=== PATIENT | female | born 1930 | race Two or more races ===

== ENCOUNTER 2016-12-24 20:15 | Emergency (ER) | payer OTHER ==
[2016-12-24 20:28] VITALS: BP 137/84; PULSE 105; TEMP 99.1; BMI 24.7
[2016-12-24] MEDS ORDERED: ACETAMINOPHEN 325 MG TABLET (FP) PO ONE (20:30)
[2016-12-24 20:56] LABS: URINE APPEARANCE CLEAR; URINE BILIRUBIN NEGATIVE (NEGATIVE); URINE BLOOD NEGATIVE (NEGATIVE); URINE COLOR STRAW; URINE GLUCOSE (UA) NEGATIVE (NEGATIVE); URINE KETONE NEGATIVE (NEGATIVE); URINE LEUK ESTERASE NEGATIVE (NEGATIVE); URINE NITRITE NEGATIVE (NEGATIVE); URINE PROTEIN NEGATIVE (NEGATIVE); URINE UROBILINOGEN NEGATIVE E.U./dl (0.2-1.0)
--- NOTE | 2016-12-24 21:07 | PDOC ---
History of Present Illness - General History Source: Patient, Family, Old Records Exam Limitations: No Limitations - History of Present Illness Initial Comments: 12/24/16 21:19 The patient is a 86 year old female, accompanied by daughter, with a past medical history of hypertension and hyperlipidemia who presents to the emergency department today for further evaluation of cough, runny nose, and subjective fever for 2 days. The patient denies nausea, vomiting, and diarrhea. PCP: Dr. Betty Buckner [phone] PAST MEDICAL HISTORY: As per HPI PAST SURGICAL HISTORY: No significant history reported FAMILY HISTORY: No pertinent history reported SOCIAL HISTORY: None reported MEDICATIONS: Reviewed ALLERGIES: As per nursing notes <Mk Huddleston - Last Filed: 12/24/16 22:13> - General History Source: Patient, Family <Eduardo Moraes - Last Filed: 12/24/16 23:11> - General Chief Complaint: Cold Symptoms Stated Complaint: COLD SYMPTOMS Time Seen by Provider: 12/24/16 20:25 Past History <Mk Huddleston - Last Filed: 12/24/16 22:13> - Past Medical History HTN: Yes Hypercholesterolemia: Yes Suicide Attempt (Hx): No - Immunization History Immunization Up to Date: Yes - Psycho/Social/Smoking Cessation Hx Anxiety: No Suicidal Ideation: No Smoking History: Never smoked Hx Alcohol Use: No Drug/Substance Use Hx: No Substance Use Type: None <Eduardo Moraes - Last Filed: 12/24/16 23:11> - Past Medical History Allergies/Adverse Reactions: Allergies Allergy/AdvReac Type Severity Reaction Status Date / Time No Known Allergies Allergy Verified 12/24/16 20:26 Home Medications: Ambulatory Orders Benazepril HCl 20 mg PO DAILY 08/16/14 Multivitamins [Multivit ([facility] Formulary)] 1 tab PO DAILY 08/16/14 Simvastatin [Zocor -] 40 mg PO HS 08/16/14 Levofloxacin [Levaquin -] 500 mg PO DAILY #7 tablet 12/29/15 Oseltamivir Phosphate [Tamiflu] 75 mg PO BID #10 capsule 12/29/15 Azithromycin [Zithromax -] 250 mg PO UTDICT #6 tab 12/24/16 Guaifenesin AC [Robitussin AC -] 5 ml PO TID #60 liquid MDD 4 12/24/16 Review of Systems - Review of Systems Able to Perform ROS?: Yes Comments:: 12/24/16 21:20 CONSTITUTIONAL: Present: fever Absent: no chills, no fatigue EYES: Absent: visual changes ENT: Present: Runny nose Absent: ear pain, no sore throat CARDIOVASCULAR: Absent: chest pain, palpitations RESPIRATORY: Present: Cough Absent: no SOB GI: Absent: abdominal pain, no nausea, no vomiting, no constipation, no diarrhea GENITOURINARY: Absent: dysuria, no frequency, no hematuria MUSCULOSKELETAL: Absent: back pain, no arthralgia, no myalgia SKIN: Absent: rash <Mk Huddleston - Last Filed: 12/24/16 22:13> *Physical Exam - Vital Signs Last Vital Signs Temp Pulse Resp BP Pulse Ox 99.1 F 105 H 18 137/84 98 12/24/16 20:26 12/24/16 20:26 12/24/16 20:26 12/24/16 20:26 12/24/16 20:26 - Physical Exam Comments: 12/24/16 21:20 GENERAL: Well-appearing, well-nourished. No apparent distress. HEENT: Normocephalic, atraumatic. PERRL, EOM intact. CARDIOVASCULAR: Normal S1, S2. Regular rate and rhythm. PULMONARY: Clear to auscultation bilaterally. ABDOMEN: Soft, non-distended, non-tender. EXTREMITIES: Normal ROM in all four extremities. No gross deformities. SKIN: Warm, dry. No rash NEUROLOGICAL: No focal neurological deficits. <Mk Huddleston - Last Filed: 12/24/16 22:13> - Vital Signs Last Vital Signs Temp Pulse Resp BP Pulse Ox 99.1 F 105 H 18 137/84 98 12/24/16 20:26 12/24/16 20:26 12/24/16 20:26 12/24/16 20:26 12/24/16 20:26 <Eduardo Moraes - Last Filed: 12/24/16 23:11> ED Treatment Course - LABORATORY CBC & Chemistry Diagram: 12/24/16 21:05 12/24/16 21:05 - ADDITIONAL ORDERS Additional order review: Laboratory Results 12/24/16 20:40 Urine Color Straw Urine Appearance Clear Urine pH 6.0 Ur Specific [place] 1.008 Urine Protein Negative Urine Glucose (UA) Negative Urine Ketones Negative Urine Blood Negative Urine Nitrite Negative Urine Bilirubin Negative Urine Urobilinogen Negative Ur Leukocyte Esterase Negative - RADIOLOGY Radiology Studies Ordered: 12/24/16 22:13 CXR: Impression: Normal chest x-ray <Mk Huddleston - Last Filed: 12/24/16 22:13> - LABORATORY CBC & Chemistry Diagram: 12/24/16 21:05 12/24/16 21:05 - ADDITIONAL ORDERS Additional order review: Laboratory Results 12/24/16 20:40 Urine Color Straw Urine Appearance Clear Urine pH 6.0 Ur Specific [place] 1.008 Urine Protein Negative Urine Glucose (UA) Negative Urine Ketones Negative Urine Blood Negative Urine Nitrite Negative Urine Bilirubin Negative Urine Urobilinogen Negative Ur Leukocyte Esterase Negative <Eduardo Moraes - Last Filed: 12/24/16 23:11> Medical Decision Making - Medical Decision Making 12/24/16 23:10 Dr. Moraes: The scribe's documentation has been prepared under my direction and personally reviewed by me in its entirery. I confirm that the note above accurately reflects all work, treatment, procedures, and medical decision making performed by me. All studies return to be negative. Patient will discharged with a Mandie and Berny. Advised to follow up with pcp. <Eduardo Moraes - Last Filed: 12/24/16 23:11> *DC/Admit/Observation/Transfer - Attestations Scribe Attestion: 12/24/16 21:21 Documentation prepared by Mk Huddleston, acting as medical equipment technician for Eduardo Moraes MD. <Mk Huddleston - Last Filed: 12/24/16 22:13> - Discharge Dispostion Admit: No <Eduardo Moraes - Last Filed: 12/24/16 23:11> Diagnosis at time of Disposition: Cough - Discharge Dispostion Disposition: HOME Condition at time of disposition: Stable - Prescriptions Prescriptions: Guaifenesin AC [Robitussin AC -] 5 ml PO TID #60 liquid MDD 4 Azithromycin [Zithromax -] 250 mg PO UTDICT #6 tab - Referrals Referrals: Betty Buckner MD [Primary Care Provider] - - Patient Instructions Printed Discharge Instructions: DI for Cough -- Adult
[2016-12-24] MEDS ORDERED: ACETAMINOPHEN 325 MG TABLET (FP) ONE (21:10)
[2016-12-24 21:37] LABS: EOSINOPHIL 0.3 % (0-4.5); MCH 30.7 pg (25.7-33.7); MEAN CELL VOLUME 92.9 fl (80-96); NEUTROPHILS 70.1 % (42.8-82.8); PLATELET COUNT 244 K/MM3 (134-434); RDW 14.4 % (11.6-15.6); WHITE BLOOD COUNT 6.3 K/mm3 (4.0-10.0)
[2016-12-24 21:54] LABS: INR 1.04 (0.82-1.09); PROTHROMBIN TIME (PATIENT) 11.5 SEC (9.98-11.88)
[2016-12-24 22:50] LABS: ALBUMIN 3.9 g/dl (3.4-5.0); ANION GAP 6 (8-16); BILIRUBIN,TOTAL 0.4 mg/dL (0.2-1.0); CALCIUM 9.2 mg/dL (8.5-10.1); CO2 29 mmol/L (21-32); CREATININE 0.6 mg/dL (0.55-1.02); GLUCOSE,RANDOM 100 mg/dL (74-106); SGOT/AST 14 U/L (15-37); SGPT/ALT 17 U/L (12-78); TOT PROT 7.9 g/dl (6.4-8.2)
[2016-12-24 22:54] LABS: ALK PHOS 109 U/L (45-117); TROPONIN I < 0.02 ng/ml (0.00-0.05)
[2016-12-24 23:09] LABS: VENOUS BLOOD GAS HCO3 23.9 meq/L (19-25); VENOUS PH 7.37 (7.32-7.42)
[2016-12-24] MEDS ORDERED: guaiFENesin/CODEINE 10 ML UNIT-DOSE CUPS PO ONE (23:09)
[2016-12-24] MEDS ORDERED: AZITHROMYCIN 250 MG TABLET (FP) PO STA (23:09)
[2016-12-24] MEDS ORDERED: guaiFENesin/CODEINE 5 ML UNIT-DOSE CUPS PO ONE (23:46)
[2016-12-24] MEDS ORDERED: AZITHROMYCIN 250 MG TABLET (FP) ONE (23:49)
--- NOTE | 2016-12-25 13:58 | EKG ---
Test Reason : Blood Pressure : / mmHG Vent. Rate : 101 BPM Atrial Rate : 101 BPM P-R Int : 120 ms QRS Dur : 072 ms QT Int : 342 ms P-R-T Axes : 075 032 044 degrees QTc Int : 443 ms SINUS TACHYCARDIA WITH PREMATURE VENTRICULAR COMPLEXES OR FUSION COMPLEXES NONSPECIFIC ST ABNORMALITY ABNORMAL ECG WHEN COMPARED WITH ECG OF 29-DEC-2015 10:52, FUSION COMPLEXES ARE NOW PRESENT PREMATURE VENTRICULAR COMPLEXES ARE NOW PRESENT NONSPECIFIC T WAVE ABNORMALITY NO LONGER EVIDENT IN ANTERIOR LEADS Confirmed by JOE MONDRAGON MD ([id number]) on 12/25/2016 1:57:57 PM Referred By: Confirmed By:JOE MONDRAGON MD
== END 2016-12-24 23:54 | disposition home or self-care (01) ==
LOC: JER 20:15
DX: R05 Cough (principal); I10 Essential (primary) hypertension; E78.00 Pure hypercholesterolemia, unspecified; E78.5 Hyperlipidemia, unspecified
CPT/HCPCS: 36415; 71010-TC; 80053; 81003; 82550; 82803; 83605; 84484; 85025; 85610; 87040; 87086; 87804; 93005; 93010; 99282-25

== ENCOUNTER 2016-12-29 06:57 | Observation (INO) | payer OTHER ==
--- NOTE | 2016-12-29 07:12 | PDOC ---
History of Present Illness - General History Source: Patient Exam Limitations: Language Barrier (russian) - History of Present Illness Initial Comments: 12/29/16 07:05 CHIEF COMPLAINT: Worsening runny nose, cough, shortness of breath, fever PCP: Dr. Obrien/ Dr.Dr. Galarza ([phone]) HISTORY OF PRESENT ILLNESS: 86 year old female presented to the ED accompanied by her daughter with the chief complaints of worsening cough, runny nose and shortness of breath and fever. A/c to the daughter, patient came to the ED on 12/24/2016 with the similar complaints, Chest xray was done which was negative for pneumonia and Influenza test negative for flu. Patient was sent home with Robitussin and Z-renetta but the symptoms have worsened. Patient had Fever (Tmax-101.3F) with chills but no rigors or sweating. Also reports to have cough, producing yellow-whitish sputum. Daughter mentions she has shortness of breath even at rest and could hear wheezing and " breathing like bubbles popping up". Patient mentions she had chest pain earlier due to vigorous coughing but now resolved after she received oxygen. Denies headache, dizziness, abdominal pain, nausea or vomiting. Bowel/Bladder habit normal. Sleep/Appetite disturbed/decreased. Received Flu vaccine this season and got pneumovaccine. Recent Travel: None PAST MEDICAL HISTORY: Hypertension, Hyperlipidemia PAST SURGICAL HISTORY: As mentioned above Social History: Smoking: Denies Alcohol: Occasional Drugs: Denies Family History: Allergies: NKDA <Beatriz Salgado - Last Filed: 12/29/16 10:39> <Rosina Razo - Last Filed: 12/30/16 17:20> - General Stated Complaint: RESPIRATORY Time Seen by Provider: 12/29/16 07:12 Past History - Past Medical History HTN: Yes Hypercholesterolemia: Yes Suicide Attempt (Hx): No - Immunization History Immunization Up to Date: Yes - Psycho/Social/Smoking Cessation Hx Anxiety: No Suicidal Ideation: No Smoking History: Never smoked Hx Alcohol Use: No Drug/Substance Use Hx: No Substance Use Type: None <Beatriz Salgado - Last Filed: 12/29/16 10:39> <Rosina Razo - Last Filed: 12/30/16 17:20> - Past Medical History Allergies/Adverse Reactions: Allergies Allergy/AdvReac Type Severity Reaction Status Date / Time No Known Allergies Allergy Verified 12/29/16 07:34 Home Medications: Ambulatory Orders Benazepril HCl 20 mg PO DAILY 08/16/14 Multivitamins [Multivit ([facility] Formulary)] 1 tab PO DAILY 08/16/14 Simvastatin [Zocor -] 40 mg PO HS 08/16/14 Oseltamivir Phosphate [Tamiflu -] 75 mg PO BID #6 capsule 12/30/16 Review of Systems - Review of Systems Able to Perform ROS?: Yes Comments:: 12/29/16 08:00 CONSTITUTIONAL: Present: Fever, chills Absent: diaphoresis, generalized weakness, malaise, loss of appetite HEENT:~ Absent: rhinorrhea, nasal congestion, throat pain, throat swelling, difficulty swallowing, mouth swelling, ear pain, eye pain, visual Changes CARDIOVASCULAR:~ Absent: chest pain, syncope, palpitations, irregular heart rate, lightheadedness , peripheral edema RESPIRATORY: Present: Cough, shortness of breath, dyspnea with exertion, wheezing Absent: cough, orthopnea, stridor, hemoptysis GASTROINTESTINAL: Absent: abdominal pain, abdominal distension, nausea, vomiting, diarrhea, constipation, melena, hematochezia GENITOURINARY:~ Absent: dysuria, frequency, urgency, hesitancy, hematuria, flank pain, genital pain MUSCULOSKELETAL:~ Absent: myalgia, arthralgia, joint swelling SKIN:~ Absent: rash, itching, pallor HEMATOLOGIC/IMMUNOLOGIC:~ Absent: easy bleeding, easy bruising, lymphadenopathy, frequent infections ENDOCRINE: Absent: unexplained weight gain, unexplained weight loss, heat intolerance, cold intolerance NEUROLOGIC:~ Absent: headache, focal weakness or paresthesias, dizziness, unsteady gait, seizure, mental status changes, bladder or bowel incontinence PSYCHIATRIC:~ Absent: anxiety, depression, suicidal or homicidal ideation, hallucinations. Is the patient limited [place] proficient: No <Beatriz Salgado - Last Filed: 12/29/16 10:39> *Physical Exam - Physical Exam Comments: 12/29/16 08:02 PE: GENERAL: Patient is an elderly female, lying comfortably in bed, Awake, alert, and fully oriented, in no acute distress, nasal oxygen in place. HEAD: No signs of trauma EYES: PERRLA, EOMI, sclera anicteric, conjunctiva clear ENT: Auricles normal inspection, hearing grossly normal, nares patent, oropharynx clear without exudates. Moist mucosa NECK: Normal ROM, supple, no lymphadenopathy, JVD, or masses LUNGS: Breath sounds decreased on the right lung, crackles at the right base, no wheeze. HEART: Regular rate and rhythm, normal S1 and S2, no murmurs, rubs or gallops ABDOMEN: Soft, nontender, normoactive bowel sounds. No guarding, no rebound. No masses EXTREMITIES: Normal range of motion, no edema. No clubbing or cyanosis. No cords, erythema, or tenderness NEUROLOGICAL: Cranial nerves II through XII grossly intact. Normal speech, normal gait SKIN: Warm, Dry, normal turgor, no rashes or lesions noted. <Beatriz Salgado - Last Filed: 12/29/16 10:39> - Vital Signs Last Vital Signs Temp Pulse Resp BP Pulse Ox 98.2 F 79 18 135/69 100 12/30/16 10:00 12/30/16 10:00 12/30/16 10:00 12/30/16 10:00 12/30/16 08:57 <Rosina Razo - Last Filed: 12/30/16 17:20> ED Treatment Course - LABORATORY CBC & Chemistry Diagram: 12/29/16 08:11 12/29/16 08:11 <Beatriz Salgado - Last Filed: 12/29/16 10:39> - LABORATORY CBC & Chemistry Diagram: 12/29/16 08:11 12/29/16 08:11 - ADDITIONAL ORDERS Additional order review: 12/29/16 08:11 Urine Culture - Final Urine - Urine Clean Catch NO GROWTH OBTAINED 12/29/16 08:00 Blood Culture - Preliminary Blood - Peripheral Venous NO GROWTH OBTAINED AFTER 24 HOURS, INCUBATION TO CONTINUE FOR 4 DAYS. 12/29/16 08:11 Blood Culture - Preliminary Blood - Peripheral Venous NO GROWTH OBTAINED AFTER 24 HOURS, INCUBATION TO CONTINUE FOR 4 DAYS. 12/29/16 08:11 Influenza Types A,B Antigen (NORMAN) - Final Nasopharyngeal Swab - Final 12/29/16 08:11 RBC 4.12 MCV 91.7 MCHC 33.9 RDW 14.1 MPV 9.1 Neutrophils % 28.2 L D Lymphocytes % 36.3 D Monocytes % 34.1 H D Eosinophils % 0.6 D Basophils % 0.8 - Medications Given in the ED: ED Medications Discontinued Medications Generic Name Dose Route Start Last Admin Trade Name Landy PRN Reason Stop Dose Admin Albuterol/Ipratropium 1 amp 12/29/16 18:00 12/30/16 06:43 Duoneb - NEB 1 amp QIDR NAVNEET Administration Atorvastatin Calcium 20 mg 12/29/16 22:00 12/29/16 22:01 Lipitor - PO 20 mg HS NAVNEET Administration Sodium Chloride 1,000 mls @ 83 mls/hr 12/29/16 07:45 12/30/16 09:09 Normal Saline - IV 83 mls/hr ASDIR NAVNEET Administration Levofloxacin 150 mls @ 100 mls/hr 12/29/16 07:36 12/29/16 08:29 Levaquin 750 Mg Premixed Ivpb - IVPB 12/29/16 09:05 100 mls/hr ONCE ONE Administration Lisinopril 20 mg 12/30/16 10:00 12/30/16 09:09 Prinivil PO 20 mg DAILY NAVNEET Administration Multivitamins/Minerals/Vitamin C 1 tab 12/30/16 10:00 12/30/16 09:09 Tab-A-Vit - PO 1 tab DAILY NAVNEET Administration Oseltamivir Phosphate 75 mg 12/29/16 10:45 12/30/16 09:09 Tamiflu - PO 01/03/17 10:44 75 mg BID NAVNEET Administration Piperacillin Sod/Tazobactam Sod 3.375 gm 12/29/16 07:36 12/29/16 08:15 Zosyn 3.375gm Ivpb (Pre-Docked) IVPB 12/29/16 07:37 3.375 gm ONCE ONE Administration Protocol <Rosina Razo - Last Filed: 12/30/16 17:20> Medical Decision Making - Medical Decision Making 12/29/16 07:06 Patient seen and examined at bed side. Vitals noted, Hyoxic, rest unremarkable. Physical examination positive for: Crackles at the lung base on auscultation. Will order basic labs, troponins, lactic acid, EKG, CXR Gentle IV fluids Since patient was refractory to zpak will order IV Levofloxacin 750mg and IV Zosyn one dose. EKG-Qtc 435 12/29/16 7:30 Patient reassessed. Breathing improved with nasal oxygen. 12/29/16 8:50 Influenza A-Positive. 12/29/16 09:10 Patients lab noted: Leukopenia (2.7); Neutrophils 28.2; Monocytes 34.1 CXR: No signs of infiltrate. Right lower lobe atelectasis Monoscreen ordered: Report pending. 12/29/16 09:33 Clinical Impression/Plan: Upper respiratory tract infections secondary to Influenza A Worsening cough, SOB, runny nose, fever Influenza A positive, leukopenia, Right lower lobe atelectasis on CXR Gentle hydration IV Zosyn and Levofloxacin (as patient didn't improve with z-renetta) Since patient is Influenza A positive and Hypoxic, will admit the patient. Call placed to Dr. Galarza at 9:34am. Spoke with Dr. Galarza @ 9:45, he agreed to the plan to admit the patient. Illness, Investigation and Plan of care explained to the patient. She verbalized understanding. Case seen and discussed with Dr. Davies. <Beatriz Salgado - Last Filed: 12/29/16 10:39> *DC/Admit/Observation/Transfer - Discharge Dispostion Admit: Yes <Beatriz Salgado - Last Filed: 12/29/16 10:39> <Rosina Razo - Last Filed: 12/30/16 17:20> Diagnosis at time of Disposition: Upper respiratory infection, Influenza A, Cough - Discharge Dispostion Disposition: [facility]/HOME HEALTH CARE Condition at time of disposition: Improved - Prescriptions Addendum entered and electronically signed by Beatriz Salgado, FRANSISCA 12/29/16 10 :40: Progress Note - Progress Note Progress Note: Ordered Tamiflu 75mg BID.
--- NOTE | 2016-12-29 07:19 | PDOC ---
Attending Attestation - Resident Resident Name: Beatriz Salgado - ED Attending Attestation I have performed the following: I have examined & evaluated the patient, The case was reviewed & discussed with the resident, I agree w/resident's findings & plan - HPI HPI: 12/29/16 07:43 86-year-old female with a past medical history of hypertension and hyperlipidemia, but no diabetes Towards the end of November she developed a cough with yellow sputum, about the same time that other family members were ill She did have the flu shot, and is current with her Pneumovax This progressed, and she was seen here on 12/24/16, and had a negative chest x- ray She was discharged on a Z-Sundar She states that despite the Z-Sundar, her cough is worsening, and now she is coughing up yellow and brown sputum, and running a temperature up to 101.3 She feels a little short of breath with exertion, and occasionally wheezy There is some chest pain with cough There is no abdominal pain nausea vomiting or diarrhea She denies any other complaints at this time - Physicial Exam PE: 12/29/16 07:44 Physical exam Last Vital Signs Temp Pulse Resp BP Pulse Ox 98.3 F 75 18 147/65 94 L 12/29/16 07:30 12/29/16 07:30 12/29/16 07:30 12/29/16 07:30 12/29/16 07:30 GENERAL: The patient is awake, alert, and fully oriented, and in no apparent distress. HEAD: Normal with no signs of trauma. EYES: sclera anicteric, conjunctiva are normal. ENT: Moist mucous sl dry NECK: Normal range of motion, supple LUNGS: Breath sounds equal, with occasional rhonchi which move with cough There are more consistent rhonchi at the right base HEART: Regular rate and rhythm, normal S1 and S2 without murmur, rub or gallop. ABDOMEN: Soft, nontender, normoactive bowel sounds. No guarding, no rebound. No masses appreciated. EXTREMITIES: Normal range of motion, no edema. No clubbing or cyanosis. No cords, erythema, or tenderness. NEUROLOGICAL: Cranial nerves II through XII grossly intact. Normal speech, normal gait. PSYCH: Normal mood, normal affect. SKIN: Warm, Dry, normal turgor, no rashes or lesions noted. - Medical Decision Making 12/29/16 07:46 Most likely pneumonia, failed outpatient therapy with Zithromax Patient has not been in the hospital recently, (other than her recent ER visit) , and has no immunocompromise in conditions Will panculture, check chest x-ray, lactic acid, labwork, and start coverage with Levaquin and Zosyn pending results, since she has failed outpatient therapy with Zithromax EKG Normal sinus rhythm 72, normal axis Normal AV and IV conduction time Normal QTC Normal EKG 12/29/16 10:25 Laboratory Results - last 24 hr 12/29/16 12/29/16 12/29/16 08:11 08:11 08:11 WBC 2.7 L D RBC 4.12 Hgb 12.8 Hct 37.8 MCV 91.7 MCHC 33.9 RDW 14.1 Plt Count 174 D MPV 9.1 Neutrophils % 28.2 L D Lymphocytes % 36.3 D Monocytes % 34.1 H D Eosinophils % 0.6 D Basophils % 0.8 Sodium 137 Potassium 4.2 Chloride 99 Carbon Dioxide 31 Anion Gap 7 L BUN 7 D Creatinine 0.7 Creat Clearance w eGFR > 60 Random Glucose 101 Lactic Acid 1.181 Calcium 8.9 Total Bilirubin 0.5 D AST 14 L ALT 17 Alkaline Phosphatase 87 D Troponin I Total Protein 7.7 Albumin 3.6 Urine Color Urine Appearance Urine pH Ur Specific [place] Urine Protein Urine Glucose (UA) Urine Ketones Urine Blood Urine Nitrite Urine Bilirubin Urine Urobilinogen Ur Leukocyte Esterase 12/29/16 12/29/16 08:11 08:22 WBC RBC Hgb Hct MCV MCHC RDW Plt Count MPV Neutrophils % Lymphocytes % Monocytes % Eosinophils % Basophils % Sodium Potassium Chloride Carbon Dioxide Anion Gap BUN Creatinine Creat Clearance w eGFR Random Glucose Lactic Acid Calcium Total Bilirubin AST ALT Alkaline Phosphatase Troponin I < 0.02 Total Protein Albumin Urine Color Yellow Urine Appearance Clear Urine pH 6.0 Ur Specific [place] 1.015 Urine Protein Negative Urine Glucose (UA) Negative Urine Ketones Negative Urine Blood Negative Urine Nitrite Negative Urine Bilirubin Negative Urine Urobilinogen Negative Ur Leukocyte Esterase Negative WBC 2.7, but ANC greater than 500 Monocytosis noted, would add Monospot Given antibiotics- 12/29/16 10:28 Chest x-ray- No sign of infiltrate or failure - possible new medial right base atelectatic changes Influenza A positive - will start tamiflu Impression-acute influenza A, possible pneumonia-will admit Case discussed with Dr Galarza - will admit
[2016-12-29] MEDS ORDERED: LEVOFLOXACIN 750 MG IVPB 150 ML IVPB ONE ×2 (07:36→07:45)
[2016-12-29] MEDS ORDERED: PIPERACILLIN/TAZOB 3.375 GM/50 ML PRE-DOCKED IVPB ONE (07:36)
[2016-12-29] MEDS ORDERED: PIPERACILLIN/TAZOB 3.375 GM 50 ML IVPB ONE (07:45)
[2016-12-29] MEDS: SODIUM CHLORIDE 1,000 ML IV SCH ×2 (08:15→14:10)
[2016-12-29 08:28] LABS: URINE APPEARANCE CLEAR; URINE BILIRUBIN NEGATIVE (NEGATIVE); URINE BLOOD NEGATIVE (NEGATIVE); URINE COLOR YELLOW; URINE GLUCOSE (UA) NEGATIVE (NEGATIVE); URINE KETONE NEGATIVE (NEGATIVE); URINE LEUK ESTERASE NEGATIVE (NEGATIVE); URINE NITRITE NEGATIVE (NEGATIVE); URINE PROTEIN NEGATIVE (NEGATIVE); URINE UROBILINOGEN NEGATIVE E.U./dl (0.2-1.0)
[2016-12-29 08:29] LABS: BASOPHIL 0.8 % (0-2.0); EOSINOPHIL 0.6 % (0-4.5); MCH 31.1 pg (25.7-33.7); MCHC 33.9 g/dl (32.0-36.0); MEAN CELL VOLUME 91.7 fl (80-96); MEAN PLT VOLUME 9.1 fl (7.5-11.1); NEUTROPHILS 28.2 % (42.8-82.8); PLATELET COUNT 174 K/MM3 (134-434); RDW 14.1 % (11.6-15.6); WHITE BLOOD COUNT 2.7 K/mm3 (4.0-10.0)
[2016-12-29 08:49] LABS: ALBUMIN 3.6 g/dl (3.4-5.0); ALK PHOS 87 U/L (45-117); ANION GAP 7 (8-16); BILIRUBIN,TOTAL 0.5 mg/dL (0.2-1.0); CALCIUM 8.9 mg/dL (8.5-10.1); CO2 31 mmol/L (21-32); CREATININE 0.7 mg/dL (0.55-1.02); GLUCOSE,RANDOM 101 mg/dL (74-106); SGOT/AST 14 U/L (15-37); SGPT/ALT 17 U/L (12-78); TOT PROT 7.7 g/dl (6.4-8.2)
[2016-12-29] MEDS ORDERED: OSELTAMIVIR PHOSPHATE 75 MG CAPSULE ONE (10:43)
[2016-12-29] MEDS: OSELTAMIVIR PHOSPHATE 75 MG CAPSULE PO SCH ×2 (10:50→22:01)
[2016-12-29 11:24] VITALS: BMI 23.8
--- NOTE | 2016-12-29 15:57 | HP ---
Admitting History and Physical - Primary Care Physician PCP: ely of breath - Admission History of Present Illness: 86 year old female presented to the ED accompanied by her daughter with the chief complaints of worsening cough, runny nose, shortness of breath and fever. A/c to the daughter, patient came to the ED on 12/24/2016 with the similar complaints, Chest xray was done which was negative for pneumonia and Influenza test negative for flu. Patient was sent home with Robitussin and Z-renetta but the symptoms have worsened. Patient had Fever (Tmax-101.3F) with chills but no rigors or sweating. Also reports to have cough, producing yellow-whitish sputum. Daughter mentions she has shortness of breath even at rest and could hear wheezing and " breathing like bubbles popping up". Patient mentions she had chest pain earlier due to vigorous coughing but now resolved after she received oxygen. Denies headache, dizziness, abdominal pain, nausea or vomiting. Bowel/Bladder habit normal. Sleep/Appetite disturbed/decreased. Received Flu vaccine this season and got pneumovaccine. History Source: Patient, Family Member (dunia), Medical Record - Past Medical History Cardiovascular: Yes: HTN, Hyperlipdemia - Smoking History Smoking history: Never smoked - Alcohol/Substance Use Hx Alcohol Use: No History of Substance Use: reports: None Home Medications - Allergies Allergies/Adverse Reactions: Allergies Allergy/AdvReac Type Severity Reaction Status Date / Time No Known Allergies Allergy Verified 12/29/16 07:34 - Home Medications Home Medications: Ambulatory Orders Benazepril HCl 20 mg PO DAILY 08/16/14 Multivitamins [Multivit ([facility] Formulary)] 1 tab PO DAILY 08/16/14 Simvastatin [Zocor -] 40 mg PO HS 08/16/14 Review of Systems - Review of Systems Constitutional: reports: Chills, Fever, Loss of Appetite, Malaise, Weakness Eyes: reports: No Symptoms HENT: reports: No Symptoms Neck: reports: No Symptoms Cardiovascular: reports: Chest Pain (associated to coughing) Respiratory: reports: SOB, Wheezing Gastrointestinal: reports: No Symptoms Genitourinary: reports: No Symptoms Breasts: reports: No Symptoms Reported Musculoskeletal: reports: No Symptoms Integumentary: reports: No Symptoms Neurological: reports: No Symptoms Endocrine: reports: No Symptoms Hematology/Lymphatic: reports: No Symptoms Psychiatric: reports: No Symptoms Physical Examination Vital Signs: Vital Signs Temperature 98.8 F 12/29/16 14:10 Pulse Rate 77 12/29/16 14:10 Respiratory Rate 20 12/29/16 11:06 Blood Pressure 143/67 12/29/16 14:10 O2 Sat by Pulse Oximetry (%) 100 12/29/16 11:06 Constitutional: Yes: Well Nourished, No Distress, Calm Eyes: Yes: WNL HENT: Yes: WNL, Atraumatic, Normocephalic Neck: Yes: WNL, Supple, Trachea Midline Cardiovascular: Yes: WNL, Regular Rate and Rhythm Respiratory: Yes: WNL, Regular, CTA Bilaterally Gastrointestinal: Yes: WNL Renal/: Yes: WNL Musculoskeletal: Yes: WNL Extremities: Yes: WNL Edema: No Peripheral Pulses WNL: Yes Peripheral Pulses: Left Radial: 2+, Right Radial: 2+, Left Doralis Pedis: 2+, Right Dorsalis Pedis: 2+, Left Femoral: 2+, Right Femoral: 2+ Integumentary: Yes: WNL Neurological: Yes: WNL, Alert, Oriented ...Motor Strength: WNL Psychiatric: Yes: WNL Problem List - Problems (1) Influenza A Code(s): J10.1 - FLU DUE TO OTH IDENT INFLUENZA VIRUS W OTH RESP MANIFEST (2) Atypical chest pain Code(s): R07.89 - OTHER CHEST PAIN (3) Hypertension Code(s): I10 - ESSENTIAL (PRIMARY) HYPERTENSION (4) Hyperlipemia Code(s): E78.5 - HYPERLIPIDEMIA, UNSPECIFIED Assessment/Plan # Shortness of breath + inluenxa A reported wheezing / dyspnea worse over last few days Tamiflu BID / duoneb QID / O2 n/c # HTN continue medications # atypical chest pain associated with coughing no other associated sx non radiating / no diaphoresis / no association with activity # Hyperlipedemia continue medications Plan re-asses in am CXR / LABS POSSIBLE D/C HOME
[2016-12-29] MEDS: ALBUTEROL SO4 2.5/IPRATROPIUM 0.5 INH SOL 3 ML VIAL.NEB. NEB SCH ×2 (18:33→23:45)
--- NOTE | 2016-12-29 19:32 | EKG ---
Test Reason : Blood Pressure : / mmHG Vent. Rate : 072 BPM Atrial Rate : 072 BPM P-R Int : 116 ms QRS Dur : 084 ms QT Int : 398 ms P-R-T Axes : 077 033 035 degrees QTc Int : 435 ms NORMAL SINUS RHYTHM BORDERLINE SHORT AL INTERVAL WHEN COMPARED WITH ECG OF 24-DEC-2016 20:45, FUSION COMPLEXES / PREMATURE VENTRICULAR COMPLEXES ARE NO LONGER PRESENT NONSPECIFIC ST ABNORMALITY IS NO LONGER PRESENT Confirmed by MATTHEW JACK, RISHI ([id number]) on 12/29/2016 7:32:48 PM Referred By: Confirmed By:RISHI CASTRO MD
[2016-12-29] MEDS ORDERED: ATORVASTATIN CA 20 MG TABLET (FP) PO SCH (22:00)
[2016-12-30] MEDS: ALBUTEROL SO4 2.5/IPRATROPIUM 0.5 INH SOL 3 ML VIAL.NEB. NEB SCH (06:43)
[2016-12-30] MEDS: SODIUM CHLORIDE 1,000 ML IV SCH (09:09)
[2016-12-30] MEDS: OSELTAMIVIR PHOSPHATE 75 MG CAPSULE PO SCH (09:09)
[2016-12-30] MEDS ORDERED: MULTIVITAMINS (DAILY MVI) TABLET (FP) PO SCH (10:00)
[2016-12-30] MEDS ORDERED: LISINOPRIL 20 MG TABLET (FP) PO SCH (10:00)
--- NOTE | 2016-12-30 10:28 | PN ---
Progress Note (short form) - Note Progress Note: Patient seen and examined at bedside daughter at bedside no further wheezing / comfortable no O2 in place ambulates in the room Vital Signs Period Temp Pulse Resp BP Sys/Gomez Pulse Ox Last 24 Hr 97.9 F-98.8 F 70-78 16-20 138-150/65-81 100-100 neck supple heart reg S1/S2 lung clear bilat abd soft non tender ext no edema / no calf tenderness CBC, BMP 12/29/16 08:11 12/29/16 08:11 Microbiology 12/29/16 08:11 Urine - Urine Clean Catch Urine Culture - Final NO GROWTH OBTAINED 12/29/16 08:00 Blood - Peripheral Venous Blood Culture - Preliminary NO GROWTH OBTAINED AFTER 24 HOURS, INCUBATION TO CONTINUE FOR 4 DAYS. 12/29/16 08:11 Blood - Peripheral Venous Blood Culture - Preliminary NO GROWTH OBTAINED AFTER 24 HOURS, INCUBATION TO CONTINUE FOR 4 DAYS. 12/29/16 08:11 Nasopharyngeal Swab Influenza Types A,B Antigen (NORMAN) - Final 12/29/16 08:11 Nasopharyngeal Swab - Final Active Medications Albuterol/Ipratropium (Duoneb -) [address] [facility] Last Admin: 12/30/16 06:43 Dose: 1 amp Atorvastatin Calcium (Lipitor -) [address] [facility] Last Admin: 12/29/16 22:01 Dose: 20 mg Sodium Chloride (Normal Saline -) 1,000 mls @ 83 mls/hr IV ASDIR [facility] Last Admin: 12/30/16 09:09 Dose: 83 mls/hr Lisinopril (Prinivil) [address] [facility] Last Admin: 12/30/16 09:09 Dose: 20 mg Multivitamins/Minerals/Vitamin C (Tab-A-Vit -) [address] [facility] Last Admin: 12/30/16 09:09 Dose: 1 tab Oseltamivir Phosphate (Tamiflu -) [address] [facility] Stop: 01/03/17 10:44 Last Admin: 12/30/16 09:09 Dose: 75 mg # Shortness of breath + influenxa A Tamiflu BID / duoneb QID / O2 n/c improved # HTN continue medications # atypical chest pain associated with coughing no other associated sx non radiating / no diaphoresis / no association with activity # Hyperlipedemia continue medications Clinically improved care and d/c discussed with daughter ALDO for Home assistance requested Problem List - Problems (1) Influenza A Code(s): J10.1 - FLU DUE TO OTH IDENT INFLUENZA VIRUS W OTH RESP MANIFEST (2) Atypical chest pain Code(s): R07.89 - OTHER CHEST PAIN (3) Hypertension Code(s): I10 - ESSENTIAL (PRIMARY) HYPERTENSION (4) Hyperlipemia Code(s): E78.5 - HYPERLIPIDEMIA, UNSPECIFIED
[2016-12-30 10:38] VITALS: BP 135/69; PULSE 79; TEMP 98.2
--- NOTE | 2016-12-30 10:46 | DS ---
Physical Examination Vital Signs: Vital Signs Temperature 98.2 F 12/30/16 10:00 Pulse Rate 79 12/30/16 10:00 Respiratory Rate 18 12/30/16 10:00 Blood Pressure 135/69 12/30/16 10:00 O2 Sat by Pulse Oximetry (%) 100 12/30/16 08:57 Constitutional: Yes: Well Nourished, No Distress, Calm Eyes: Yes: WNL, Conjunctiva Clear, EOM Intact HENT: Yes: WNL, Atraumatic, Normocephalic Neck: Yes: WNL, Supple, Trachea Midline Cardiovascular: Yes: WNL, Regular Rate and Rhythm Respiratory: Yes: WNL, Regular, CTA Bilaterally Gastrointestinal: Yes: WNL, Normal Bowel Sounds, Soft Renal/: Yes: WNL Extremities: Yes: WNL Edema: No Peripheral Pulses WNL: Yes Peripheral Pulses: Left Radial: 2+ Integumentary: Yes: WNL Neurological: Yes: WNL, Alert, Oriented ...Motor Strength: WNL Discharge Summary Reason For Visit: URI/ INFLUENZA A Current Active Problems Atypical chest pain (Acute) Cough (Acute) Hyperlipemia (Acute) Hypertension (Acute) Influenza A (Acute) Upper respiratory infection (Acute) Condition: Improved - Instructions Referrals: Angela Galarza MD [Staff Physician] - Disposition: HOME - Home Medications Comprehensive Discharge Medication List: Ambulatory Orders Benazepril HCl 20 mg PO DAILY 08/16/14 Multivitamins [Multivit ([facility] Formulary)] 1 tab PO DAILY 08/16/14 Simvastatin [Zocor -] 40 mg PO HS 08/16/14 Oseltamivir Phosphate [Tamiflu -] 75 mg PO BID #6 capsule 12/30/16
== END 2016-12-30 11:24 | disposition home health service (06) ==
LOC: JER 06:57 → INTOOBSV 09:46 → JERBED 09:46 → UNDOADMOB 09:46 → J6S 11:04 → JERBED 11:04 → J6S 12:55
PROVIDERS: ADMIT Family Medicine; ATTEND Family Medicine
DX: J10.1 Influenza due to other identified influenza virus with other respiratory manifestations (principal); I10 Essential (primary) hypertension; E78.5 Hyperlipidemia, unspecified; D72.818 Other decreased white blood cell count; J98.11 Atelectasis; R07.89 Other chest pain
CPT/HCPCS: 36415; 71010-TC; 80053; 81003; 83605; 84484; 85025; 86308; 87040; 87086; 87804; 93005; 93010; 94640; 99285-25; G0378

== ENCOUNTER 2019-05-31 10:11 | Inpatient (IN) | payer OTHER ==
[2019-05-31] MEDS ORDERED: SODIUM CHLORIDE 1,000 ML IV SCH (10:30)
[2019-05-31 11:10] VITALS: BMI 21.7
--- NOTE | 2019-05-31 11:15 | PDOC ---
Documentation entered by Penny Child SCRIBE, acting as scribe for Doug Rose MD. Doug Rose MD: This documentation has been prepared by the Danyell bridges Xhesika, SCRIBE, under my direction and personally reviewed by me in its entirety. I confirm that the documentation accurately reflects all work, treatment, procedures, and medical decision making performed by me. Attending Attestation - Resident Resident Name: Sinan Robert - ED Attending Attestation I have performed the following: I have examined & evaluated the patient, The case was reviewed & discussed with the resident, I agree w/resident's findings & plan - HPI HPI: 05/31/19 10:51 The patient is an 88 year old female with a significant PMH of hypertension and hyperlipidemia, recently diagnosed L ICA occlusion who presents to the emergency department via EMS with R sided facial weakness and R sided upper and lower extremity. Daughter notes about 3 days of slightly muffled speech and word -finding difficulty, pt declined medical evaluation at that time. As per daughter the patient was in bed at her baseline at 11pm last night. As per daughter the patient endorsed an unwitnessed fall at 8:45AM, daughter went upstairs picked the patient up and noticed the patient was disoriented, muffling and could not speak in full sentences. Patient denies getting up to use the bathroom last night. Patient denies chest pain or changes in vision. As per daughter the patient had a cardiac work up which was normal at her last doctors visit, however, she had L sided Carotid occlusive which is being followed up by Dr. Gilmore. The patient denies shortness of breath, headache and dizziness. Denies fever, chills, cough, nausea, vomiting, diarrhea and constipation. Denies dysuria, frequency, urgency and hematuria. Allergies: NKDA Past surgical history: b/l cataract surgery. C- section. PCP: Dr. Galarza Cards: Dr. Gilmore - Physicial Exam PE: 05/31/19 11:12 Vital signs as noted Subtle flattening of right nasolabial fold, right upper extremity and right lower extremity drift 4 out of 5 Speech is clear here, but per daughter has some word finding difficulty, Heart is regular without ectopy - Critical Care Time Total Critical Care Time: 45 Critical Care Statement: The care of this patient involved high complexity decision making to prevent further life threatening deterioration of the patient 's condition and/or to evaluate & treat vital organ system(s) failure or risk of failure. - Medical Decision Making 05/31/19 11:13 88-year-old female with 2-3 days of dysarthria/aphasia now with fall in the setting of new right-sided weakness, and H score of 5. Speech disturbance began 3 days ago, last known well from that baseline was 11 PM last night. Presentation consistent with CVA, likely initiated 3 days ago. Patient is not a candidate for intravenous for lysis, may be a candidate for mechanical thrombectomy given her new deficit, which is physically debilitating given her baseline [place]. Stroke protocol initiated CT and CTA of the head and neck Neurology consult Admission versus transfer pending results Heart Score/ECG Review #1 ECG reviewed & interpreted by me at: 11:07 General ECG Interpretation: Sinus Rhythm, Normal Rate (81), Normal Intervals ( qtc 453), No acute ischemic changes NIH Stroke Scale - Last Known Well Date/Time & Onset Date Last Known Well: 05/27/19 (exact time unclear) - Initial Evaluation Level of consciousness: Alert Ask patient the month and their age: Answers both correctly Ask patient to open & close eyes; make fist and let go: Obeys both correctly Best gaze (horizontal eye movement): Normal Visual field testing: No visual field loss Facial paresis (Show teeth/raise eyebrows/close eyes tight): Minor paralysis ( flattened nasolabial fold, asymmetry on smiling) Motor Function: Left Arm: Normal Motor Function: Right Arm: Drift Motor Function: Left Leg: Normal (extends leg 30 degrees for 5 seconds without drift) Motor Function: Right Leg: Drift Limb Ataxia: No ataxia Sensory(Use pinprick test arms,legs,trunk,face/side to side): Normal Best language (Describe picture, name items, read sentences): Mild to moderate aphasia Dysarthria (read several words): Mild to moderate slurring of words Extinction and Inattention: No abnormality - Total Score NIH Stroke Scale Score: 5
[2019-05-31 11:31] LABS: BASO % 0.6 % (0-2.0); EOS % 0.2 % (0-4.5); HEMATOCRIT 31.5 % (32.4-45.2); HEMOGLOBIN 10.7 GM/dL (10.7-15.3); MCH 30.9 pg (25.7-33.7); MCHC 33.9 g/dl (32.0-36.0); MEAN CELL VOLUME 91.2 fl (80-96); MEAN PLT VOLUME 8.8 fl (7.5-11.1); MONO % 15.9 % (3.8-10.2); NEUT % 62.3 % (42.8-82.8); PLATELET COUNT 261 K/MM3 (134-434); RBC 3.45 M/mm3 (3.60-5.2); WHITE BLOOD COUNT 5.3 K/mm3 (4.0-10.0)
[2019-05-31] MEDS ORDERED: ASPIRIN 81 MG CHEWABLE TABLETS PO ONE (11:37)
[2019-05-31] MEDS ORDERED: ATORVASTATIN CA 40 MG TABLET (FP) PO ONE (11:38)
[2019-05-31 11:41] LABS: INR 1.17 (0.83-1.09); PROTHROMBIN TIME (PATIENT) 13.8 SEC (9.7-13.0)
--- NOTE | 2019-05-31 11:45 | PDOC ---
History of Present Illness - General Chief Complaint: CVA/TIA Stated Complaint: R/O STROKE Time Seen by Provider: 05/31/19 10:24 - History of Present Illness Initial Comments: 88 year old female with PMH of HTN, HLD, and left sided carotid stenosis (90% on recent echo) presenting with right sided hand weakness, speech deficit, and right lower extremity weakness worsening today when her daughter heard her fall to the floor. Denies any pain anywhere or head trauma. The patient was fine last night around 9 PM and this fall occurred at approximately 7:30 AM. The family states that she has been having trouble gripping objects with her right hand over the last few days and has been dropping objects as well. She has had a carotid doppler recently that demonstrated left sided internal carotid stenosis of 90%. 05/31/19 11:39 tPA Exclusion checklist 3-4.5h - Thrombolytic Therapy Candidate Is patient eligible for thrombolytic therapy: No - Ineligibility reason(s) Reasons No tPA given: Outside of window - delayed arrival NIH Stroke Scale - Last Known Well Date/Time & Onset Date Last Known Well: 05/30/19 Time Last Known Well: 21:00 - Initial Evaluation Level of consciousness: Alert Ask patient the month and their age: Answers both correctly Ask patient to open & close eyes; make fist and let go: Obeys both correctly Best gaze (horizontal eye movement): Normal Visual field testing: No visual field loss Facial paresis (Show teeth/raise eyebrows/close eyes tight): Minor paralysis ( flattened nasolabial fold, asymmetry on smiling) Motor Function: Left Arm: Normal Motor Function: Right Arm: Drift Motor Function: Left Leg: Normal (extends leg 30 degrees for 5 seconds without drift) Motor Function: Right Leg: Drift Limb Ataxia: No ataxia Sensory(Use pinprick test arms,legs,trunk,face/side to side): Normal Best language (Describe picture, name items, read sentences): No Aphasia Dysarthria (read several words): Mild to moderate slurring of words Extinction and Inattention: No abnormality - Total Score NIH Stroke Scale Score: 4 Past History - Past Medical History Allergies/Adverse Reactions: Allergies Allergy/AdvReac Type Severity Reaction Status Date / Time No Known Allergies Allergy Verified 05/31/19 10:47 Home Medications: Ambulatory Orders Benazepril HCl 20 mg PO DAILY 08/16/14 Multivitamins [Multivit ([facility] Formulary)] 1 tab PO DAILY 08/16/14 Simvastatin [Zocor -] 20 mg PO HS 08/16/14 Ergocalciferol (Vitamin D2) [Vitamin D2] 50,000 unit PO WEEKLY 05/31/19 COPD: No HTN: Yes Hypercholesterolemia: Yes - Immunization History Immunization Up to Date: Yes - Suicide/Smoking/Psychosocial Hx Smoking History: Unknown if ever smoked Hx Alcohol Use: No Drug/Substance Use Hx: No Substance Use Type: None Review of Systems - Review of Systems Constitutional: No: Chills, Diaphoresis, Fever, Loss of Appetite HEENTM: No: Tearing, Recent change in vision Respiratory: No: Cough, Orthopnea, Shortness of Breath Cardiac (ROS): No: Chest Pain, Edema ABD/GI: No: Diarrhea, Nausea, Vomiting : No: Burning, Dysuria, Discharge Integumentary: No: Bruising, Change in Color Neurological: No: Headache, Numbness, Paresthesia Psychiatric: No: Anxiety, Depression Hematologic/Lymphatic: No: Anemia, Blood Clots *Physical Exam - Vital Signs Last Vital Signs Temp Pulse Resp BP Pulse Ox 98.6 F 76 18 163/66 100 05/31/19 11:07 05/31/19 11:07 05/31/19 11:07 05/31/19 11:07 05/31/19 11:07 - Physical Exam General Appearance: Yes: Nourished, Appropriately Dressed. No: Apparent Distress HEENT: positive: EOMI, PABLO, Normal ENT Inspection, Normal Voice Neck: positive: Trachea midline, Normal Thyroid, Supple. negative: Tender, Rigid Respiratory/Chest: positive: Lungs Clear, Normal Breath Sounds. negative: Chest Tender, Respiratory Distress, Accessory Muscle Use Cardiovascular: positive: Regular Rhythm, Regular Rate Gastrointestinal/Abdominal: positive: Normal Bowel Sounds, Flat, Soft. negative : Tender Lymphatic: negative: Adenopathy, Tenderness Musculoskeletal: positive: Normal Inspection. negative: Decreased Range of Motion Extremity: positive: Normal Capillary Refill, Normal Inspection, Normal Range of Motion. negative: Tender Integumentary: positive: Normal Color, Dry, Warm Neurologic: positive: Fully Oriented, Alert, Normal Mood/Affect, Normal Response , Motor Strength 5/5 ED Treatment Course - LABORATORY CBC & Chemistry Diagram: 06/03/19 07:00 06/03/19 07:00 - ADDITIONAL ORDERS Additional order review: 05/31/19 11:05 RBC 3.45 L MCV 91.2 MCHC 33.9 RDW 14.0 MPV 8.8 Neutrophils % 62.3 D Lymphocytes % 21.0 D Monocytes % 15.9 H Eosinophils % 0.2 Basophils % 0.6 - RADIOLOGY Radiology Studies Ordered: Category Date Time Status BRAIN CTA (STROKE) [CT] Stat CT Scan 05/31/19 10:[address] (STROKE) [CT] Stat CT Scan 05/31/19 10:22 Completed Medical Decision Making - Medical Decision Making 88 year old female presenting with symptoms concerning for CVA with known left ICA 90% occlusion. Patient outside window for TPA on arrival with NIHSS 4. CT negative and CTA neck demonstrating complete occlusion of the left ICA with intact [place]. Discussed with Dr. Newby of neurology and will admit for MRI/ further workup. No need for transfer for IR intervention as patient's deficits are not significant and no thrombus found on CTA. Signed out to medicine team. Patient stable on admission with mild HTN. *DC/Admit/Observation/Transfer Diagnosis at time of Disposition: Cerebrovascular accident (CVA) Qualifiers: CVA mechanism: occlusion Precerebral and cerebral artery: carotid artery Laterality of affected vessel: left Qualified Code(s): I63.232 - Cerebral infarction due to unspecified occlusion or stenosis of left carotid arteries - Discharge Dispostion Condition at time of disposition: Stable Decision to Admit order: Yes - Referrals - Patient Instructions - Post Discharge Activity
[2019-05-31] MEDS ORDERED: ASPIRIN 81 MG CHEWABLE TABLETS ONE (11:46)
[2019-05-31] MEDS ORDERED: ATORVASTATIN CA 40 MG TABLET (FP) ONE (11:46)
[2019-05-31 12:02] LABS: CHOLESTEROL 166 mg/dL (50-200); HDL CHOLESTEROL 44 mg/dL (40-60); TRIGLYCERIDES 63 mg/dL (0-150)
[2019-05-31 12:03] LABS: BILIRUBIN,TOTAL 0.6 mg/dL (0.2-1); BLOOD UREA NITROGEN 6.9 mg/dL (7-18); CALCIUM 8.2 mg/dL (8.5-10.1); CREATININE 0.5 mg/dL (0.55-1.3); TOT PROT 6.8 g/dl (6.4-8.2)
[2019-05-31 14:52] LABS: URINE APPEARANCE Clear; URINE BILIRUBIN Negative (NEGATIVE); URINE COLOR Yellow; URINE GLUCOSE (UA) Negative (NEGATIVE); URINE KETONE 1+ (NEGATIVE); URINE LEUK ESTERASE Negative (NEGATIVE); URINE NITRITE Negative (NEGATIVE); URINE PROTEIN Negative (NEGATIVE); URINE UROBILINOGEN 0.2 mg/dL (0.2-1.0)
--- NOTE | 2019-05-31 15:24 | EKG ---
Test Reason : Blood Pressure : / mmHG Vent. Rate : 081 BPM Atrial Rate : 081 BPM P-R Int : 130 ms QRS Dur : 080 ms QT Int : 390 ms P-R-T Axes : 073 038 033 degrees QTc Int : 453 ms NORMAL SINUS RHYTHM NORMAL ECG WHEN COMPARED WITH ECG OF 29-DEC-2016 07:19, NO SIGNIFICANT CHANGE WAS FOUND Confirmed by JOSEPH LEDESMA MD ([id number]) on 05/31/2019 3:24:18 PM Referred By: Confirmed By:JOSEPH LEDESMA MD
--- NOTE | 2019-05-31 16:36 | PN ---
Progress Note (short form) - Note Progress Note: Vascular surgery The patient is an 88 year old female with a significant PMH of hypertension and hyperlipidemia, recently diagnosed L ICA occlusion who presents to the emergency department via EMS with R sided facial weakness and R sided upper and lower extremity. Daughter notes about 3 days of slightly muffled speech and word -finding difficulty, pt declined medical evaluation at that time. As per daughter the patient was in bed at her baseline at 11pm last night. As per daughter the patient endorsed an unwitnessed fall at 8:45AM, daughter went upstairs picked the patient up and noticed the patient was disoriented, muffling and could not speak in full sentences. Patient denies getting up to use the bathroom last night. Patient denies chest pain or changes in vision. CTA shows left ICA occlusion. Right side is open with no lesions. No need for any vascular intervention at this time. Medical management. El Gilmore DO
--- NOTE | 2019-05-31 19:11 | CON.NEURO ---
Consult - Past Medical History Cardio/Vascular: Yes: HTN, Hyperlipdemia - Alcohol/Substance Use Hx Alcohol Use: No History of Substance Use: reports: None - Smoking History Smoking history: Unknown if ever smoked Home Medications - Allergies Allergies/Adverse Reactions: Allergies Allergy/AdvReac Type Severity Reaction Status Date / Time No Known Allergies Allergy Verified 05/31/19 10:47 - Home Medications Home Medications: Ambulatory Orders Benazepril HCl 20 mg PO DAILY 08/16/14 Multivitamins [Multivit ([facility] Formulary)] 1 tab PO DAILY 08/16/14 Simvastatin [Zocor -] 20 mg PO HS 08/16/14 Ergocalciferol (Vitamin D2) [Vitamin D2] 50,000 unit PO WEEKLY 05/31/19 Physical Exam-Neuro Vital Signs: Vital Signs Temperature 98.5 F 05/31/19 16:45 Pulse Rate 88 05/31/19 16:45 Respiratory Rate 16 05/31/19 16:45 Blood Pressure 162/89 05/31/19 16:45 O2 Sat by Pulse Oximetry (%) 99 05/31/19 15:19 Labs: CBC, BMP 05/31/19 11:05 05/31/19 11:05 INR, PTT INR 1.17 (0.83-1.09) H 05/31/19 11:05 Assessment/Plan cc Transient Right arm and leg weakness with critical stenosis of Left ICA HPI 88 year old female history of HTN,HLD,Left sided critical stenosis. Paitent came with right hand leg weakness and speech dysarthria. It seems to be recovered. SHe takes zocor and not taking aspirin. She saw dr blanc in past for possible CEA. Patient was seen on floor and her symptoms seems to be recovered PMH as above ROS, FH , SH reviewed in chart Allergies/Adverse Reactions: Allergies Allergy/AdvReac Type Severity Reaction Status Date / Time No Known Allergies Allergy Verified 05/31/19 10:47 Home Medications: Benazepril HCl 20 mg PO DAILY 08/16/14 Multivitamins [Multivit ([facility] Formulary)] 1 tab PO DAILY 08/16/14 Simvastatin [Zocor -] 40 mg PO HS 08/16/14 Oseltamivir Phosphate [Tamiflu -] 75 mg PO BID #6 capsule 12/30/16 - Vital Signs Last Vital Signs Temp Pulse Resp BP Pulse Ox 98.6 F 76 18 163/66 100 05/31/19 11:07 05/31/19 11:07 05/31/19 11:07 05/31/19 11:07 05/31/19 11:07 NEUROLOGICAL EXAMINATION Alert oriented x 3, speech is normal CN eomi, pupils reactive no face asymmetry Motor 5/5 all ext sensation is normal ct head no acute findings CTA of neck showed left ica 100 percent occlusion Assessment/Plan 88 year old female history of HTN,HLD, came with right sided hemiparesis and symptoms resolved. ct head is unremarkable. Plan: continue aspirin and statin cta of neck done and there is 100 percent occlusion stroke education speech and pt MRI of brain Thanking you so much Anshu Sloan MD
--- NOTE | 2019-05-31 20:01 | HP ---
Admitting History and Physical - Admission Chief Complaint: i fell History of Present Illness: 88 year old female with PMH of HTN, HLD, and left sided carotid stenosis (90% on recent echo) presenting with right sided hand weakness, speech deficit, and right lower extremity weakness worsening today when her daughter heard her fall to the floor. Daughter report patient with right sided weakness and slurred speech at time of event -- she noted improvement at ED, and at time of exam patient had clear speech and was able to provide hx of the events of this morning. Denies any pain anywhere or head trauma. The patient was fine last night around 9 PM and this fall occurred at approximately 7:30 AM. The family states that she has been having trouble gripping objects with her right hand over the last few days and has been dropping objects as well. History Source: Patient, Family Member (daughter -- who resides with patient) Limitations to Obtaining History: No Limitations - Past Medical History Cardiovascular: Yes: HTN, Hyperlipdemia - Smoking History Smoking history: Unknown if ever smoked Have you smoked in the past 12 months: No - Alcohol/Substance Use Hx Alcohol Use: No History of Substance Use: reports: None - Social History Usual Living Arrangement: Yes: With Child ADL: Family Assistance History of Recent Travel: No Home Medications - Allergies Allergies/Adverse Reactions: Allergies Allergy/AdvReac Type Severity Reaction Status Date / Time No Known Allergies Allergy Verified 05/31/19 10:47 - Home Medications Home Medications: Ambulatory Orders Benazepril HCl 20 mg PO DAILY 08/16/14 Multivitamins [Multivit ([facility] Formulary)] 1 tab PO DAILY 08/16/14 Simvastatin [Zocor -] 20 mg PO HS 08/16/14 Ergocalciferol (Vitamin D2) [Vitamin D2] 50,000 unit PO WEEKLY 05/31/19 Review of Systems - Review of Systems Constitutional: reports: No Symptoms Eyes: reports: No Symptoms. denies: Blurred Vision HENT: reports: No Symptoms Neck: reports: No Symptoms Cardiovascular: denies: Chest Pain, Palpitations, Shortness of Breath Respiratory: reports: No Symptoms. denies: SOB Gastrointestinal: reports: No Symptoms Genitourinary: reports: No Symptoms Breasts: reports: No Symptoms Reported Musculoskeletal: reports: No Symptoms Integumentary: reports: No Symptoms Neurological: reports: Confusion (mild patient is Oriented X3 abulates without devices or assitance) Endocrine: reports: No Symptoms Hematology/Lymphatic: reports: No Symptoms Psychiatric: reports: No Symptoms Physical Examination Vital Signs: Vital Signs Temperature 98.5 F 05/31/19 18:00 Pulse Rate 88 05/31/19 18:00 Respiratory Rate 16 05/31/19 18:00 Blood Pressure 162/89 05/31/19 18:00 O2 Sat by Pulse Oximetry (%) 99 05/31/19 18:00 Constitutional: Yes: Well Nourished, No Distress, Calm, Thin Eyes: Yes: WNL HENT: Yes: WNL, Atraumatic, Normocephalic Neck: Yes: Supple, Trachea Midline Cardiovascular: Yes: Regular Rate and Rhythm, Pulse Irregular Respiratory: Yes: CTA Bilaterally (on room air) Gastrointestinal: Yes: Normal Bowel Sounds, Soft Renal/: Yes: WNL Breast(s): Yes: WNL Musculoskeletal: Yes: Other (motor 5/5 equal bilaterally upper and lower extremities). No: Joint Stiffness, Muscle Weakness Extremities: Yes: WNL. No: Deformity Edema: No Peripheral Pulses WNL: Yes Integumentary: Yes: WNL Neurological: Yes: Alert, Oriented. No: Dysarthria, Facial Droop, Loss of Sensation, Numbness ...Motor Strength: WNL Labs: CBC, BMP 05/31/19 11:05 05/31/19 11:05 Problem List - Problems (1) Fall at home Assessment/Plan: admit to tele r/o arrhythmia CT of head done negative MRI of brain r/o cva neurology consult requested and done Physical therapy consult Cardiology consult Code(s): W19.XXXA - UNSPECIFIED FALL, INITIAL ENCOUNTER; Y92.009 - UNSP PLACE IN [facility] (2) Right-sided muscle weakness Assessment/Plan: transient at time of exam resolved await PT evaluation neurology eval done Code(s): M62.81 - MUSCLE WEAKNESS (GENERALIZED) (3) Slurred speech Assessment/Plan: resolved at time of exam Code(s): R47.81 - SLURRED SPEECH (4) Hyperlipemia Assessment/Plan: max dose of Statins Code(s): E78.5 - HYPERLIPIDEMIA, UNSPECIFIED (5) Hypertension Assessment/Plan: continue home meds avoid hypotension Code(s): I10 - ESSENTIAL (PRIMARY) HYPERTENSION
[2019-05-31] MEDS ORDERED: ATORVASTATIN CA 80 MG TABLET (FP) PO SCH (22:00)
[2019-06-01 07:54] LABS: BASO % 0.8 % (0-2.0); EOS % 0.9 % (0-4.5); HEMATOCRIT 31.4 % (32.4-45.2); HEMOGLOBIN 10.8 GM/dL (10.7-15.3); LYMPH % 22.2 % (8-40); MCH 31.3 pg (25.7-33.7); MCHC 34.4 g/dl (32.0-36.0); MEAN PLT VOLUME 8.9 fl (7.5-11.1); MONO % 16.1 % (3.8-10.2); PLATELET COUNT 279 K/MM3 (134-434); RBC 3.45 M/mm3 (3.60-5.2); RDW 13.8 % (11.6-15.6); WHITE BLOOD COUNT 4.8 K/mm3 (4.0-10.0)
[2019-06-01 08:34] LABS: BILIRUBIN,TOTAL 0.6 mg/dL (0.2-1); BLOOD UREA NITROGEN 4.9 mg/dL (7-18); CALCIUM 8.6 mg/dL (8.5-10.1); CREATININE 0.5 mg/dL (0.55-1.3); MAGNESIUM 2.2 mg/dL (1.8-2.4); PHOSPHOROUS 3.2 mg/dL (2.5-4.9); POTASSIUM 4.1 mmol/L (3.5-5.1); TOT PROT 6.8 g/dl (6.4-8.2)
--- NOTE | 2019-06-01 09:59 | PN ---
Progress Note (short form) - Note Progress Note: patient seen ambulating hallway with use of walker / PT at side states she feels "well" no gross deficits noted while ambulating speech remains clear comprehension appropriate conversation all in gabonese Vital Signs Period Temp Pulse Resp BP Sys/Gomez Pulse Ox Last 24 Hr 97.8 F-98.6 F 72-88 16-18 138-163/52-89 99-100 heart s1/S2 regular lungs clear bilat abd soft non tender ext no edema / no calf tenderness CBC, BMP 06/01/19 07:16 06/01/19 07:16 ct head no acute findings CTA of neck showed left ica 100 percent occlusion Active Medications Atorvastatin Calcium (Lipitor -) 80 mg PO HS [facility] Last Admin: 05/31/19 21:52 Dose: 80 mg Lisinopril (Prinivil) 20 mg PO DAILY [facility] Multivitamins/Minerals/Vitamin C (Tab-A-Vit -) 1 tab PO DAILY [facility] Polyethylene Glycol (Miralax (For Daily Use) -) 17 gm PO DAILY [facility] Assessment/Plan 88 year old female history of HTN,HLD, came with right sided hemiparesis and symptoms resolved. # TIA vs CVA clinically improved PT eval in process await MRI findings discussed with daughter and patient # Left ICA occlusion increased dose of statins appreciate vascular and neuro opinion discussed medical management with daughter # HTN continue home meds Benefit of STR discussed with family -- agreed would prefer [facility] Problem List - Problems (1) Fall at home Code(s): W19.XXXA - UNSPECIFIED FALL, INITIAL ENCOUNTER; Y92.009 - UNSP PLACE IN [facility]SP [facility] (2) Right-sided muscle weakness Code(s): M62.81 - MUSCLE WEAKNESS (GENERALIZED) (3) Slurred speech Code(s): R47.81 - SLURRED SPEECH (4) Hyperlipemia Code(s): E78.5 - HYPERLIPIDEMIA, UNSPECIFIED (5) Hypertension Code(s): I10 - ESSENTIAL (PRIMARY) HYPERTENSION
[2019-06-01] MEDS ORDERED: LISINOPRIL 20 MG TABLET (FP) PO SCH (10:00)
[2019-06-01] MEDS ORDERED: POLYETHYLENE GLYCOL 3350 119 GM BTL PO SCH (10:00)
[2019-06-01] MEDS ORDERED: MULTIVITAMINS (DAILY MVI) TABLET (FP) PO SCH (10:00)
[2019-06-01] MEDS ORDERED: ASPIRIN 81 MG CHEWABLE TABLETS PO SCH (10:15)
[2019-06-01] MEDS ORDERED: ASPIRIN 81 MG CHEWABLE TABLETS ONE (10:16)
--- NOTE | 2019-06-01 10:20 | CONSULT ---
Admitting History and Physical - Primary Care Physician PCP: Angela Galarza I - Admission History of Present Illness: 88 year old female history of HTN,HLD, came with right sided hemiparesis and symptoms had resolved. ct head is unremarkable. cta of neck done and there is 100 percent occlusion Rapid response called while I was reviewing the chart. Pt had increased right side weakness and difficulty completing her sentences. Symptoms were then resolving. Sent to CT-w/u in progress. Followed in ICU. Pt is Lithuanian speaking, fluent, appropriate, recalls inability to speak for about 10 minutes earlier today. History Source: Patient, Family Member Limitations to Obtaining History: No Limitations - Past Medical History Cardiovascular: Yes: HTN, Hyperlipdemia - Smoking History Smoking history: Unknown if ever smoked Have you smoked in the past 12 months: No - Alcohol/Substance Use Hx Alcohol Use: No History of Substance Use: reports: None - Social History ADL: Family Assistance History of Recent Travel: No History - Admission Reason For Visit: CVA - Diagnostics X-ray: Report Reviewed CT Scan: Report Reviewed - General Mental Status: Alert and Oriented, Awake and Alert, Able to Follow Commands Attention: Intact Ability to Follow Directions: Excellent Head/Neck Control: WFL - Hearing Hearing: Normal Hearing Aide: No Speech Evaluation - Communication Primary Language: BAHAMIAN Communication: Yes: Within Normal Limits, Language Barrier Oral Expression Ability: Yes: No Impairment - Speech Production Able to Make Needs Known: Yes: WNL Intelligibility: Yes: WNL - Speech Characteristics Voice Loudness: Normal Voice Pitch: Yes: Normal Voice Phonatory-based Quality: Yes: Normal Speech Pattern: Normal Speech Clarity: < 100% Nasal Resonance: Normal Articulation: Yes: Precise - Language/Auditory Comprehension Follows: Yes: 2 Stage Simple Commands - Language/Verbal Expression Able to Respond to Simple Queries: Yes: WNL Able to Communicate Wants and Needs: Yes: WNL Functional Communication Status: Yes: WNL - 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: Yes: WNL Short Term Memory: Yes: WNL - Swallow Evaluation/Bedside Assessment Current Nutritional Intake: Regular, Thin Liquids Oral Secretions: Yes: WFL Dentition: Yes: Adequate Facial Symmetry at Rest: Facial Droop Right (slight) Facial Symmetry on Retraction: Symmetrical Facial Movement: Controlled Sensation: Normal Against Resistance Opening: Normal Against Resistance Closing: Normal Pucker Lips: Normal Smile: Normal Lingual Movement: Normal, Symmetric Lingual Speed of Movement: Normal Lingual Movement Strgth Against Opposition: Normal Lingual Movement Characteristics: Normal Laryngeal Elevation: WFL Laryngeal Movement: Able to Palpate Rate of Intake: WFL Bolus Size: WFL Labial Seal: WFL Chewing: WFL Oral Prep Time: WFL A-P Transit: WFL Pocketing: None Timing of Swallow: WFL Coughing/Throat Clear: No Change in Voice: No Recommendations - Speech Evaluation, Impression/Plan Impression: Speech, language, cognition, swallowing intact. - Dysphagia Impressions/Plan Swallowing Skills: WF Dysphagia Impressions: No Impairment *Silent aspiration: cannot be R/O at bedside Dysphagia Treatment Plan: Elevate HOB during feed - Recommendations Diet Consistency: Regular Medication Administration: Whole with water Liquids: Thin Liquids
--- NOTE | 2019-06-01 10:28 | RAPID ---
Physical Examination Vital Signs: Vital Signs HR- 90 BP 185/82 SaO2: 98% RR- 22 Labs: CBC, BMP 06/01/19 07:16 06/01/19 07:16 Suspected CVA MD Exam Time (Code Hernández Time): 10:15 CT Stroke ordered: Yes Stat "Code Hernández" Consult to Neurology called & responded: Yes Last Known Well (Date): 06/01/19 Last Known Well (Time): 10:08 Symptom Discovery (Date): 06/01/19 Symptom Discovery (Time): 10:14 - NIH Stroke Scale/Score Level of consciousness: Alert Ask patient the month and their age: Answers both correctly Ask patient to open & close eyes; make fist and let go: Obeys both correctly Best gaze (horizontal eye movement): Normal Visual field testing: No visual field loss Facial paresis (Show teeth/raise eyebrows/close eyes tight): Minor paralysis ( flattened nasolabial fold, asymmetry on smiling) Motor Function: Left Arm: Normal Motor Function: Right Arm: Drift Motor Function: Left Leg: Normal (extends leg 30 degrees for 5 seconds without drift) Motor Function: Right Leg: Drift Limb Ataxia: Untestable (Joint fused or limb amputated), explain: (unable to follow directions) Best language (Describe picture, name items, read sentences): Mild to moderate aphasia Dysarthria (read several words): Mild to moderate slurring of words Extinction and Inattention: No abnormality
[2019-06-01] MEDS ORDERED: SODIUM CHLORIDE 500 ML IV SCH (11:15)
--- NOTE | 2019-06-01 11:32 | PN ---
Progress Note (short form) - Note Progress Note: 88 year old female history of HTN,HLD,Left sided critical stenosis. Jennifer came with right hand leg weakness and speech dysarthria. It seems to be recovered. SHe takes zocor and not taking aspirin. She saw dr blanc in past for possible CEA. Patient had her symptoms resolved she is doing much better this morning . I saw her walking with PT and she is has become suddenly right sided weakness and aphasia. Her NIH score was 5 and her bp was 140/81 and she recovered after giving IVF. Hayes jacinto was called and patient had ct head , which was unchanged. I stay bedside, spoke to stroke team and primary attending. Patient recovered after giving ivf and spoke to [facility] ( stroke team) Dr Howard. After much discussion it was decided she would not be candidate. Given that she improved markedly and after speaking to family it was decided to hold tpa. I spent 90 minute doing critical care at bedside. 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 Patient have nih score of 1-2 and icu. Plan: she can be started on Plavix and high dose of statin and Maintain on ivf , keep bp more permissible - spent 90 minute doing critical care - neuro check - spoke to [facility], and gia to be a candidate for any procedure stroke education speech and pt MRI of brain when stable Thanking you so much Anshu Sloan MD
--- NOTE | 2019-06-01 11:55 | CON.CARD ---
Consult Consult Specialty:: Cardiology Referred by:: Medicine Reason for Consultation:: stroke - History of Present Illness History of Present Illness: 88F h/o HTN, HLD, L sided carotid stenosis p/w R hand and leg weakness and dysarthria, which improved. Sees me for cardio. Has L sided carotid 100% occlusion. She was on zocor, not on aspirin at home. Initially symptoms resolved, was admitted to tele and was noted to have sudden R side weakness and aphasia while walking with PT this morning, chela fredi was called. Improved with IVF, transferred to ICU for monitoring. Evaluated by neuro Dr. Kim, not a candidate for intervention at [facility], tpa was held as well. Patient now denies complaints, no chest pain, palps, dizziness. - Past Medical History Cardio/Vascular: Yes: HTN, Hyperlipdemia - Alcohol/Substance Use Hx Alcohol Use: No History of Substance Use: reports: None - Smoking History Smoking history: Unknown if ever smoked Have you smoked in the past 12 months: No - Social History ADL: Family Assistance History of Recent Travel: No Home Medications - Allergies Allergies/Adverse Reactions: Allergies Allergy/AdvReac Type Severity Reaction Status Date / Time No Known Allergies Allergy Verified 05/31/19 10:47 - Home Medications Home Medications: Ambulatory Orders Benazepril HCl 20 mg PO DAILY 08/16/14 Multivitamins [Multivit ([facility] Formulary)] 1 tab PO DAILY 08/16/14 Simvastatin [Zocor -] 20 mg PO HS 08/16/14 Ergocalciferol (Vitamin D2) [Vitamin D2] 50,000 unit PO WEEKLY 05/31/19 Review of Systems - Review of Systems Constitutional: reports: No Symptoms Eyes: reports: No Symptoms HENT: reports: No Symptoms Neck: reports: No Symptoms Cardiovascular: reports: No Symptoms Respiratory: reports: No Symptoms Gastrointestinal: reports: No Symptoms Genitourinary: reports: No Symptoms Musculoskeletal: reports: No Symptoms Integumentary: reports: No Symptoms Neurological: reports: No Symptoms Endocrine: reports: No Symptoms Hematology/Lymphatic: reports: No Symptoms Psychiatric: reports: No Symptoms Vital Signs: Vital Signs Temperature 97.9 F 06/01/19 06:00 Pulse Rate 81 06/01/19 10:00 Respiratory Rate 16 06/01/19 10:00 Blood Pressure 142/81 06/01/19 10:00 O2 Sat by Pulse Oximetry (%) 100 06/01/19 09:00 Constitutional: Yes: Well Nourished, No Distress, Calm Eyes: Yes: Conjunctiva Clear, EOM Intact HENT: Yes: Atraumatic, Normocephalic Neck: Yes: Supple, Trachea Midline Respiratory: Yes: Regular, CTA Bilaterally Gastrointestinal: Yes: Normal Bowel Sounds, Soft Cardiovascular: Yes: Regular Rate and Rhythm JVD: No Carotid Bruit: Yes PMI: Non-Displaced Heart Sounds: Yes: S1, S2 Murmur: No: Systolic Murmur Musculoskeletal: No: Back Pain Extremities: No: Cold Edema: No Integumentary: No: Jaundice Neurological: Yes: Alert, Oriented ...Motor Strength: RUE (r hand weakness) Psychiatric: No: Agitated - Other Data Labs, Other Data: CBC, BMP 06/01/19 07:16 06/01/19 07:16 INR, PTT INR 1.17 (0.83-1.09) H 05/31/19 11:05 Troponin, BNP 05/31/19 11:05 Troponin I < 0.02 Troponin, BNP 05/31/19 11:05 Troponin I < 0.02 Assessment/Plan EKG: sinus, nl intervals, no ischemic changes Holter 04/2019 no arrhythmia echo 04/2019 nl LV/RV function, E/A reversal, mild pulm HTN, mild MAC, mild MR, mild to mod TR Carotid ultrasound 04/2019 80-99% L ICA stenosis with extensive atherosclerotic disease bilaterally tele: sinus 88F h/o HTN, HLD, carotid stenosis p/w R hemiparesis, dysarthria, now resolved TIA, carotid stenosis - evaluated by vascular - no intervention recommended - neuro consulted - d/w [facility], not a candidate for intervention and tPA held - continue aspirin, statin, plavix as well per neuro - monitoring on tele - MRI brain pending HTN - BP targets per neuro HLD - cont statin - inc to high dose atorvastatin
--- NOTE | 2019-06-01 12:01 | PN ---
Teaching Attending Note Name of Resident: Martir Arias ATTENDING PHYSICIAN STATEMENT I saw and evaluated the patient. I reviewed the resident's note and discussed the case with the resident. I agree with the resident's findings and plan as documented. SUBJECTIVE: Pt seen and examined in the ICU. Transferred down for right hemiparesis now improved. NIHSS [address] head unchanged. OBJECTIVE: Vital Signs Period Temp Pulse Resp BP Sys/Gomez Pulse Ox Last 24 Hr 97.8 F-98.6 F 72-88 16-18 138-162/52-89 99-100 Intake & Output 05/29/19 05/30/19 05/31/19 06/01/19 23:59 23:59 23:59 23:59 Intake Total 150 250 Balance 150 250 Weight 55.792 kg Gen: NAD at rest HEENT: mild right facial droop Heart: RRR Lung: decreased breath sounds at the bases Abd: soft, nontender Ext: no edema CBC, BMP 06/01/19 07:16 06/01/19 07:16 Active Medications Aspirin (Asa -) 81 mg PO DAILY [facility] Last Admin: 06/01/19 11:25 Dose: 81 mg Atorvastatin Calcium (Lipitor -) 80 mg PO HS [facility] Last Admin: 05/31/19 21:52 Dose: 80 mg Sodium Chloride (Normal Saline -) 500 mls @ 500 mls/hr IV ASDIR [facility] Last Admin: 06/01/19 11:25 Dose: 500 mls/hr Lisinopril (Prinivil) 20 mg PO DAILY [facility] Last Admin: 06/01/19 11:23 Dose: Not Given Multivitamins/Minerals/Vitamin C (Tab-A-Vit -) 1 tab PO DAILY [facility] Polyethylene Glycol (Miralax (For Daily Use) -) 17 gm PO DAILY [facility] ASSESSMENT AND PLAN: Acute TIA Carotid Stenosis HTN Hyperlipidemia - antiplatelets - allow permissive hypertension - neuro checks - PO as tolerated - DVT prophylaxis - can monitor on telemetry
--- NOTE | 2019-06-01 12:57 | CONSULT ---
Consultation: REQUESTING PROVIDER: Dr. Sloan CONSULT REQUEST: We have been asked to medically evaluate this patient for Acute R sided hemiparesis HISTORY OF PRESENT ILLNESS: 88 year old female with a history of hypertension, hyperlipidemia, L sided carotid stenosis presented to the hospital for R sided upper and lower extremity weakness and aphasia. Last known well was 9pm last night. Prior to admission, at home, patient fell at 7:30am. She was admitted for treatment of acute CVA. Hayes Anthony was called on the floor noting that she had R sided hemiparesis. NIH score on floor was calculated to be 5-6 and patient was brought down to ICU for possible TPA administration. Prior to coming to the ICU , patient was taken to CT scan, where it was noted that she was able to move her right side of her body once again. Currently the patient is comfortable in bed in no acute distress. She reports resolving weakness and denies any current symptoms. REVIEW OF SYSTEMS: CONSTITUTIONAL: Absent: fever, chills, diaphoresis, generalized weakness, malaise, loss of appetite, weight change HEENT: Absent: rhinorrhea, nasal congestion, throat pain, throat swelling, difficulty swallowing, mouth swelling, ear pain, eye pain, visual changes CARDIOVASCULAR: Absent: chest pain, syncope, palpitations, irregular heart rate, lightheadedness , peripheral edema RESPIRATORY: Absent: cough, shortness of breath, dyspnea with exertion, orthopnea, wheezing, stridor, hemoptysis GASTROINTESTINAL: Absent: abdominal pain, abdominal distension, nausea, vomiting, diarrhea, constipation, melena, hematochezia GENITOURINARY: Absent: dysuria, frequency, urgency, hesitancy, hematuria, flank pain, genital pain MUSCULOSKELETAL: Absent: myalgia, arthralgia, joint swelling, back pain, neck pain SKIN: Absent: rash, itching, pallor HEMATOLOGIC/IMMUNOLOGIC: Absent: easy bleeding, easy bruising, lymphadenopathy, frequent infections ENDOCRINE: Absent: unexplained weight gain, unexplained weight loss, heat intolerance, cold intolerance NEUROLOGIC: Absent: headache, focal weakness or paresthesias, dizziness, unsteady gait, seizure, mental status changes, bladder or bowel incontinence PSYCHIATRIC: Absent: anxiety, depression, suicidal or homicidal ideation, hallucinations. PHYSICAL EXAMINATION Vital Signs - 24 hr 05/31/19 05/31/19 05/31/19 15:19 16:45 18:00 Temperature 98.6 F 98.5 F 98.5 F Pulse Rate 88 88 Pulse Rate [ 84 Left] Respiratory 18 16 16 Rate Blood Pressure 162/89 162/89 Blood Pressure 150/52 L [Left Arm] O2 Sat by Pulse 99 99 Oximetry (%) 05/31/19 05/31/19 06/01/19 21:00 21:20 01:00 Temperature 97.9 F 97.8 F Pulse Rate 77 74 Pulse Rate [ Left] Respiratory 16 16 18 Rate Blood Pressure 162/75 154/56 L Blood Pressure [Left Arm] O2 Sat by Pulse 100 Oximetry (%) 06/01/19 06/01/19 06/01/19 06:00 09:00 10:00 Temperature 97.9 F Pulse Rate 72 81 Pulse Rate [ Left] Respiratory 16 16 Rate Blood Pressure 138/74 142/81 Blood Pressure [Left Arm] O2 Sat by Pulse 100 Oximetry (%) GENERAL: A&Ox3, no acute distress EYES: PERRLA, EOMI ENT: Moist mucus membranes NECK: No JVD LUNGS: CTA, no wheezes HEART: RRR, no murmurs ABDOMEN: Soft, nontender, BS present MUSCULOSKELETAL: No CVA Tenderness EXTREMITIES: 2+ pulses, no edema. NEUROLOGICAL: Cranial nerves II-XII intact. Motor strength 5/5 b/l upper and lower extremities. Sensation intact throughout. Reflexes 2/4 bilaterally. No dysmetria. Mild facial droop. Good recall. NIH score 1. Laboratory Results - last 24 hr 05/31/19 05/31/19 06/01/19 13:22 17:00 07:16 WBC 4.8 RBC 3.45 L Hgb 10.8 Hct 31.4 L MCV 91.0 MCH 31.3 MCHC 34.4 RDW 13.8 Plt Count 279 MPV 8.9 Absolute Neuts (auto) 2.9 Neutrophils % 60.0 Lymphocytes % 22.2 Monocytes % 16.1 H Eosinophils % 0.9 D Basophils % 0.8 Nucleated RBC % 0 Sodium Potassium Chloride Carbon Dioxide Anion Gap BUN Creatinine Est GFR (CKD-EPI)AfAm Est GFR (CKD-EPI)NonAf Random Glucose Calcium Phosphorus Magnesium Total Bilirubin AST ALT Alkaline Phosphatase Total Protein Albumin Triglycerides Cholesterol Total LDL Cholesterol HDL Cholesterol TSH Urine Color Yellow Urine Appearance Clear Urine pH 7.0 Ur Specific [place] 1.010 Urine Protein Negative Urine Glucose (UA) Negative Urine Ketones 1+ H Urine Blood Negative Urine Nitrite Negative Urine Bilirubin Negative Urine Urobilinogen 0.2 Ur Leukocyte Esterase Negative Blood Type O POSITIVE 06/01/19 07:16 WBC RBC Hgb Hct MCV MCH MCHC RDW Plt Count MPV Absolute Neuts (auto) Neutrophils % Lymphocytes % Monocytes % Eosinophils % Basophils % Nucleated RBC % Sodium 139 Potassium 4.1 Chloride 106 Carbon Dioxide 29 Anion Gap 4 L BUN 4.9 L Creatinine 0.5 L Est GFR (CKD-EPI)AfAm 100.86 Est GFR (CKD-EPI)NonAf 87.02 Random Glucose 97 Calcium 8.6 Phosphorus 3.2 Magnesium 2.2 Total Bilirubin 0.6 AST 7 L ALT 13 Alkaline Phosphatase 90 Total Protein 6.8 Albumin 3.0 L Triglycerides 59 Cholesterol 169 Total LDL Cholesterol 115 H HDL Cholesterol 41 TSH 1.64 Urine Color Urine Appearance Urine pH Ur Specific [place] Urine Protein Urine Glucose (UA) Urine Ketones Urine Blood Urine Nitrite Urine Bilirubin Urine Urobilinogen Ur Leukocyte Esterase Blood Type Active Medications Generic Name Dose Route Start Last Admin Trade Name Noelq PRN Reason Stop Dose Admin Aspirin 81 mg 06/01/19 10:15 06/01/19 11:25 Asa - PO 81 mg DAILY [facility] Administration Atorvastatin Calcium 80 mg 05/31/19 22:00 05/31/19 21:52 Lipitor - PO 80 mg HS [facility] Administration Sodium Chloride 500 mls @ 500 mls/hr 06/01/19 11:15 06/01/19 11:25 Normal Saline - IV 500 mls/hr ASDIR [facility] Administration Lisinopril 20 mg 06/01/19 10:00 06/01/19 11:23 Prinivil PO Not Given DAILY [facility] Multivitamins/Minerals/Vitamin C 1 tab 06/01/19 10:00 Tab-A-Vit - PO DAILY [facility] Polyethylene Glycol 17 gm 06/01/19 10:00 Miralax (For Daily Use) - PO DAILY [facility] ASSESSMENT/PLAN: 88 year old female with a history of hypertension, hyperlipidemia, L sided carotid stenosis presented to the hospital for R sided upper and lower extremity weakness and aphasia. Neurology d/w neurology Dr. Sloan patient back to a normal level of functioning with possible mild right sided facial droop Will add plavix will hold lisinopril for now Not a candidate for intervention Head CT negative echo EKG normal sinus rhythm Compelte L IJ occlusion; vascular/neuro consultation Re-evaluated patient 2 hours later without change in baseline, she was actually stronger in her upper extremities than before. Can monitor patient on stroke tele, does not require ICU level of care Dispo: Stroke-tele. Thank you for this consultative opportunity. Visit type - Emergency Visit Emergency Visit: No - New Patient This patient is new to me today: Yes Date on this admission: 06/01/19 - Critical Care Critical Care patient: No ATTENDING PHYSICIAN STATEMENT I saw and evaluated the patient. I reviewed the resident's note and discussed the case with the resident. I agree with the resident's findings and plan as documented. SUBJECTIVE: OBJECTIVE: ASSESSMENT AND PLAN:
[2019-06-01] MEDS ORDERED: CLOPIDOGREL BISULFATE 75 MG TABLET (FP) PO ONE (18:06)
[2019-06-01] MEDS: ATORVASTATIN CA 80 MG TABLET (FP) PO SCH (21:25)
[2019-06-01] MEDS: SODIUM CHLORIDE 500 ML IV SCH (23:20)
--- NOTE | 2019-06-02 09:05 | PN ---
Progress Note (short form) - Note Progress Note: 88 year old female history of HTN,HLD,Left sided critical stenosis. Jennifer came with right hand leg weakness and speech dysarthria. It seems to be recovered. At home,SHe takes zocor and not taking aspirin. She saw dr blanc in past for possible CEA. On June 01, she become suddenly right sided weakness and aphasia. Her NIH score was 5 and her bp was 140/81 and she recovered after giving IVF. Hayes jacinto was called and patient had ct head , which was unchanged. Patient recovered after giving ivf and spoke to [facility] ( stroke team) Dr Howard. After much discussion it was decided she would not be candidate. G On June 01, she went to icu and later sent back to floor. She has mri of brain it showed left parietal lobe stroke and clinically she is much improved. 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 Plan: continue plavix and statin - neuro check - repeat ct head today - continue level of care, slowly Antihypertensive medication can be resumed. - continue iv Fluid for another 24 hour Thanking you so much Anshu Sloan MD
[2019-06-02] MEDS: POLYETHYLENE GLYCOL 3350 119 GM BTL PO SCH (10:04)
[2019-06-02] MEDS: ASPIRIN 81 MG CHEWABLE TABLETS PO SCH (10:04)
[2019-06-02] MEDS: MULTIVITAMINS (DAILY MVI) TABLET (FP) PO SCH (10:04)
[2019-06-02] MEDS: CLOPIDOGREL BISULFATE 75 MG TABLET (FP) PO SCH (10:04)
--- NOTE | 2019-06-02 10:31 | PN ---
Progress Note (short form) - Note Progress Note: s: no chest pain, palps, dizziness, dyspnea. R hand strength improved, feels at baseline. Current Medications Aspirin (Asa -) 81 mg PO DAILY [facility] Last Admin: 06/02/19 10:04 Dose: 81 mg Atorvastatin Calcium (Lipitor -) 80 mg PO HS [facility] Last Admin: 06/01/19 21:25 Dose: 80 mg Clopidogrel Bisulfate (Plavix -) 75 mg PO DAILY [facility] Last Admin: 06/02/19 10:04 Dose: 75 mg Sodium Chloride (Normal Saline -) 500 mls @ 500 mls/hr IV ASDIR [facility] Last Admin: 06/01/19 23:20 Dose: 500 mls/hr Multivitamins/Minerals/Vitamin C (Tab-A-Vit -) 1 tab PO DAILY [facility] Last Admin: 06/02/19 10:04 Dose: 1 tab Polyethylene Glycol (Miralax (For Daily Use) -) 17 gm PO DAILY [facility] Last Admin: 06/02/19 10:04 Dose: 17 gm Vital Signs Period Temp Pulse Resp BP Sys/Gomez Pulse Ox Last 24 Hr 97.9 F-98.3 F 67-81 15-23 117-172/52-76 97 Constitutional: Yes: Well Nourished, No Distress, Calm Eyes: Yes: Conjunctiva Clear, EOM Intact HENT: Yes: Atraumatic, Normocephalic Neck: Yes: Supple, Trachea Midline Respiratory: Yes: Regular, CTA Bilaterally Gastrointestinal: Yes: Normal Bowel Sounds, Soft Cardiovascular: Yes: Regular Rate and Rhythm JVD: No Carotid Bruit: Yes PMI: Non-Displaced Heart Sounds: Yes: S1, S2 Murmur: No: Systolic Murmur Musculoskeletal: No: Back Pain Extremities: No: Cold Edema: No Integumentary: No: Jaundice Neurological: Yes: Alert, Oriented ...Motor Strength: RUE (r hand weakness) Psychiatric: No: Agitated Assessment/Plan EKG: sinus, nl intervals, no ischemic changes Holter 04/2019 no arrhythmia echo 04/2019 nl LV/RV function, E/A reversal, mild pulm HTN, mild MAC, mild MR, mild to mod TR Carotid ultrasound 04/2019 80-99% L ICA stenosis with extensive atherosclerotic disease bilaterally tele: sinus 88F h/o HTN, HLD, carotid stenosis p/w R hemiparesis, dysarthria, now resolved TIA, carotid stenosis - evaluated by vascular - no intervention recommended - neuro consulted - d/w [facility], not a candidate for intervention and tPA held for R hemiparesis, dysarthria 06/01 - continue aspirin, statin, plavix per neuro - monitoring on tele - 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
--- NOTE | 2019-06-02 12:16 | PN ---
Progress Note (short form) - Note Progress Note: Events reviewed /discussed extensively with daughter patient transferred to ICU now back at [facility] daughter at bedside restricted to bedrest Vital Signs Period Temp Pulse Resp BP Sys/Gomez Pulse Ox Last 24 Hr 97.8 F-98.6 F 72-88 16-18 138-163/52-89 99-100 heart s1/S2 regular lungs clear bilat abd soft non tender ext no edema / no calf tenderness able to move all extremetied / FROM / no sensory deficits / speech clear and comprehension appropriate CBC, BMP 06/01/19 07:16 06/01/19 07:16 ct head no acute findings CTA of neck showed left ica 100 percent occlusion MRI reviewed and discussed with neurology -- no bleed Active Medications Aspirin (Asa -) 81 mg PO DAILY [facility] Last Admin: 06/02/19 10:04 Dose: 81 mg Atorvastatin Calcium (Lipitor -) 80 mg PO HS [facility] Last Admin: 06/01/19 21:25 Dose: 80 mg Clopidogrel Bisulfate (Plavix -) 75 mg PO DAILY [facility] Last Admin: 06/02/19 10:04 Dose: 75 mg Sodium Chloride (Normal Saline -) 500 mls @ 500 mls/hr IV ASDIR [facility] Last Admin: 06/01/19 23:20 Dose: 500 mls/hr Multivitamins/Minerals/Vitamin C (Tab-A-Vit -) 1 tab PO DAILY [facility] Last Admin: 06/02/19 10:04 Dose: 1 tab Polyethylene Glycol (Miralax (For Daily Use) -) 17 gm PO DAILY [facility] Last Admin: 06/02/19 10:04 Dose: 17 gm Assessment/Plan 88 year old female history of HTN,HLD, came with right sided hemiparesis and symptoms resolved. # CVA clinically improved findings discussed with daughter and patient medical management and POC discussed # Left ICA occlusion increased dose of statins appreciate vascular and neuro opinion discussed medical management with daughter # HTN continue home meds Benefit of STR discussed with family -- agreed would prefer [facility] Problem List - Problems (1) Fall at home Code(s): W19.XXXA - UNSPECIFIED FALL, INITIAL ENCOUNTER; Y92.009 - UNSP PLACE IN UNSP NON-INSTITUT (PRIVATE) RESIDENCE PLACE (2) Right-sided muscle weakness Code(s): M62.81 - MUSCLE WEAKNESS (GENERALIZED) (3) Slurred speech Code(s): R47.81 - SLURRED SPEECH (4) Hyperlipemia Code(s): E78.5 - HYPERLIPIDEMIA, UNSPECIFIED (5) Hypertension Code(s): I10 - ESSENTIAL (PRIMARY) HYPERTENSION
[2019-06-02] MEDS: ACETAMINOPHEN 325 MG TABLET (FP) PO PRN (13:21)
--- NOTE | 2019-06-02 14:46 | PN ---
Progress Note, EVENT ATTENDANT - Note Progress Note: Selected Entries 06/01/19 06/01/19 06/01/19 01:00 06:00 11:00 Breakfast Diet Tolerated Supper Temperature 97.8 F 97.9 F 98 F 06/01/19 06/01/19 06/01/19 15:00 16:00 21:00 Breakfast Diet Tolerated Supper 50% Temperature 98.0 F 98.3 F 06/02/19 06/02/19 06/02/19 02:00 06:00 08:30 Breakfast 50% Diet Tolerated Fair Fair Supper Temperature 97.9 F 98.0 F 06/02/19 10:00 Breakfast Diet Tolerated Supper Temperature 97.9 F Laboratory Tests 06/01/19 07:16 WBC 4.8 Pt tolerating diet well. Speech, lang, cognition intact. Seen bedside.
[2019-06-02] MEDS: SODIUM CHLORIDE 500 ML IV SCH (17:35)
[2019-06-02] MEDS: ATORVASTATIN CA 80 MG TABLET (FP) PO SCH (21:38)
[2019-06-03 07:49] LABS: BLOOD UREA NITROGEN 9.2 mg/dL (7-18); CALCIUM 9.2 mg/dL (8.5-10.1); CREATININE 0.6 mg/dL (0.55-1.3); POTASSIUM 4.6 mmol/L (3.5-5.1)
[2019-06-03 08:09] LABS: BASO % 0.6 % (0-2.0); EOS % 1.5 % (0-4.5); HEMATOCRIT 34.6 % (32.4-45.2); HEMOGLOBIN 11.8 GM/dL (10.7-15.3); LYMPH % 26.1 % (8-40); MCH 30.9 pg (25.7-33.7); MCHC 34.1 g/dl (32.0-36.0); MEAN CELL VOLUME 90.6 fl (80-96); MEAN PLT VOLUME 8.6 fl (7.5-11.1); MONO % 15.5 % (3.8-10.2); NEUT % 56.3 % (42.8-82.8); PLATELET COUNT 372 K/MM3 (134-434); RBC 3.82 M/mm3 (3.60-5.2); RDW 14.1 % (11.6-15.6); WHITE BLOOD COUNT 4.5 K/mm3 (4.0-10.0)
--- NOTE | 2019-06-03 08:51 | PN ---
Progress Note (short form) - Note Progress Note: 88 year old female history of HTN,HLD,Left sided critical stenosis. Jennifer came with right hand leg weakness and speech dysarthria. It seems to be recovered. At home,SHe takes zocor and not taking aspirin. She saw dr blanc in past for possible CEA. On June 01, she become suddenly right sided weakness and aphasia. Her NIH score was 5 and her bp was 140/81 and she recovered after giving IVF. [facility] jacinto was called and patient had ct head , which was unchanged. Patient recovered after giving ivf and spoke to [facility] ( stroke team) Dr Howard. After much discussion it was decided she would not be candidate. G On June 01, she went to icu and later sent back to floor. She has mri of brain it showed left parietal lobe stroke and clinically she is much improved. 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 Plan: continue plavix and statin - neuro check - continue level of care, slowly Antihypertensive medication can be resumed. - spoke to family regarding diagnosis and prognosis Thanking you so much Anshu Sloan MD
--- NOTE | 2019-06-03 10:27 | PN ---
Progress Note (short form) - Note Progress Note: s: no chest pain, palps, dizziness, dyspnea. R hand strength improved, feels at baseline. Current Medications Generic Name Dose Route Start Last Admin Trade Name Landy PRN Reason Stop Dose Admin Acetaminophen 650 mg 06/02/19 12:29 06/02/19 13:21 Tylenol - PO 650 mg Q6H PRN Administration PAIN LEVEL 1-5 Aspirin 81 mg 06/02/19 10:00 06/02/19 10:04 Asa - PO 81 mg DAILY [facility] Administration Atorvastatin Calcium 80 mg 06/01/19 22:00 06/02/19 21:38 Lipitor - PO 80 mg HS [facility] Administration Clopidogrel Bisulfate 75 mg 06/02/19 10:00 06/02/19 10:04 Plavix - PO 75 mg DAILY [facility] Administration Sodium Chloride 500 mls @ 500 mls/hr 06/01/19 18:06 06/02/19 17:35 Normal Saline - IV Not Given ASDIR [facility] Multivitamins/Minerals/Vitamin C 1 tab 06/02/19 10:00 06/02/19 10:04 Tab-A-Vit - PO 1 tab DAILY [facility] Administration Polyethylene Glycol 17 gm 06/02/19 10:00 06/02/19 10:04 Miralax (For Daily Use) - PO 17 gm DAILY [facility] Administration Vital Signs Period Temp Pulse Resp BP Sys/Gomez Pulse Ox Last 24 Hr 97.5 F-98.3 F 68-73 - 133-173/61-88 96 Constitutional: Yes: Well Nourished, No Distress, Calm Eyes: Yes: Conjunctiva Clear Respiratory: Yes: Regular, CTA Bilaterally Gastrointestinal: Yes: Normal Bowel Sounds, Soft Cardiovascular: Yes: Regular Rate and Rhythm JVD: No Carotid Bruit: Yes PMI: Non-Displaced Heart Sounds: Yes: S1, S2 Murmur: No: Systolic Murmur Musculoskeletal: No: Back Pain Extremities: No: Cold Edema: No Integumentary: No: Jaundice Neurological: Yes: Alert, Oriented Psychiatric: No: Agitated CBC, BMP 06/03/19 07:00 06/03/19 07:00 Assessment/Plan EKG: sinus, nl intervals, no ischemic changes Holter 04/2019 no arrhythmia echo 04/2019 nl LV/RV function, E/A reversal, mild pulm HTN, mild MAC, mild MR, mild to mod TR Carotid ultrasound 04/2019 80-99% L ICA stenosis with extensive atherosclerotic disease bilaterally tele: sinus 88F h/o HTN, HLD, carotid stenosis p/w R hemiparesis, dysarthria, now resolved TIA, carotid stenosis - evaluated by vascular - no intervention recommended - neuro consulted - d/w [facility], not a candidate for intervention and tPA held for R hemiparesis, dysarthria 06/01 - continue aspirin, statin, plavix per neuro - monitoring on tele - MRI brain with L parietal lobe stroke HTN - BP targets per neuro HLD - cont statin
[2019-06-03] MEDS ORDERED: PT OWN MED DRAWER 7, Y5N ONE (10:30)
[2019-06-03] MEDS: MULTIVITAMINS (DAILY MVI) TABLET (FP) PO SCH (10:37)
[2019-06-03] MEDS: ASPIRIN 81 MG CHEWABLE TABLETS PO SCH (10:37)
[2019-06-03] MEDS: CLOPIDOGREL BISULFATE 75 MG TABLET (FP) PO SCH (10:37)
[2019-06-03] MEDS: POLYETHYLENE GLYCOL 3350 119 GM BTL PO SCH ×2 (10:54→11:04)
[2019-06-03] MEDS: SODIUM CHLORIDE 500 ML IV SCH (17:20)
--- NOTE | 2019-06-03 18:45 | PN ---
Progress Note (short form) - Note Progress Note: awake alert oriente X3 FROM restricted to bedrest Vital Signs Period Temp Pulse Resp BP Sys/Gomez Pulse Ox Last 24 Hr 97.8 F-98.6 F 72-88 16-18 138-163/52-89 99-100 heart s1/S2 regular lungs clear bilat abd soft non tender ext no edema / no calf tenderness able to move all extremetied / FROM / no sensory deficits / speech clear and comprehension appropriate CBC, BMP 06/03/19 07:00 06/03/19 07:00 CBC, BMP 06/01/19 07:16 06/01/19 07:16 ct head no acute findings CTA of neck showed left ica 100 percent occlusion MRI reviewed and discussed with neurology -- no bleed Active Medications Acetaminophen (Tylenol -) 650 mg PO Q6H PRN PRN Reason: PAIN LEVEL 1-5 Last Admin: 06/02/19 13:21 Dose: 650 mg Aspirin (Asa -) 81 mg PO DAILY [facility] Last Admin: 06/03/19 10:37 Dose: 81 mg Atorvastatin Calcium (Lipitor -) 80 mg PO HS [facility] Last Admin: 06/02/19 21:38 Dose: 80 mg Clopidogrel Bisulfate (Plavix -) 75 mg PO DAILY [facility] Last Admin: 06/03/19 10:37 Dose: 75 mg Sodium Chloride (Normal Saline -) 500 mls @ 500 mls/hr IV ASDIR [facility] Last Admin: 06/03/19 17:20 Dose: Not Given Multivitamins/Minerals/Vitamin C (Tab-A-Vit -) 1 tab PO DAILY [facility] Last Admin: 06/03/19 10:37 Dose: 1 tab Polyethylene Glycol (Miralax (For Daily Use) -) 17 gm PO DAILY [facility] Last Admin: 06/03/19 11:04 Dose: Not Given Assessment/Plan 88 year old female history of HTN,HLD, came with right sided hemiparesis and symptoms resolved. # CVA clinically improved yet repeat even dy after admission - with transfer to ICU. Neurology on the [facility] when event occurred, sx resolved while in ICU. Back on [facility] day 2 without further events on Plavix / repeat CT yesterday -- reviewed findings discussed with daughter and patient medical management and POC discussed # Left ICA occlusion increased dose of statins # HTN continue home meds Benefit of STR discussed with family --they will consider Problem List - Problems (1) Fall at home Code(s): W19.XXXA - UNSPECIFIED FALL, INITIAL ENCOUNTER; Y92.009 - UNSP PLACE IN UNSP NON-INSTITUT (PRIVATE) RESIDENCE PLACE (2) Right-sided muscle weakness Code(s): M62.81 - MUSCLE WEAKNESS (GENERALIZED) (3) Slurred speech Code(s): R47.81 - SLURRED SPEECH (4) Hyperlipemia Code(s): E78.5 - HYPERLIPIDEMIA, UNSPECIFIED (5) Hypertension Code(s): I10 - ESSENTIAL (PRIMARY) HYPERTENSION
[2019-06-03] MEDS: ATORVASTATIN CA 80 MG TABLET (FP) PO SCH (21:33)
--- NOTE | 2019-06-04 08:16 | PN ---
Progress Note, Physician Chief Complaint: hx in [place] Daughter present Tele: NSR, 3 beats NSVT. Short run PSVT - Current Medication List Current Medications: Active Medications Acetaminophen (Tylenol -) 650 mg PO Q6H PRN PRN Reason: PAIN LEVEL 1-5 Last Admin: 06/02/19 13:21 Dose: 650 mg Aspirin (Asa -) 81 mg PO DAILY [facility] Last Admin: 06/03/19 10:37 Dose: 81 mg Atorvastatin Calcium (Lipitor -) 80 mg PO HS [facility] Last Admin: 06/03/19 21:33 Dose: 80 mg Clopidogrel Bisulfate (Plavix -) 75 mg PO DAILY [facility] Last Admin: 06/03/19 10:37 Dose: 75 mg Sodium Chloride (Normal Saline -) 500 mls @ 500 mls/hr IV ASDIR [facility] Last Admin: 06/03/19 17:20 Dose: Not Given Multivitamins/Minerals/Vitamin C (Tab-A-Vit -) 1 tab PO DAILY [facility] Last Admin: 06/03/19 10:37 Dose: 1 tab Polyethylene Glycol (Miralax (For Daily Use) -) 17 gm PO DAILY [facility] Last Admin: 06/03/19 11:04 Dose: Not Given - Objective Vital Signs: Vital Signs Temperature 97.4 F L 06/04/19 06:00 Pulse Rate 68 06/04/19 06:00 Respiratory Rate 16 06/04/19 06:00 Blood Pressure 115/69 06/04/19 06:00 O2 Sat by Pulse Oximetry (%) 97 06/03/19 21:00 Constitutional: Yes: No Distress Cardiovascular: Yes: Regular Rate and Rhythm Respiratory: Yes: CTA Bilaterally Gastrointestinal: Yes: Soft Edema: No Neurological: Yes: Alert Labs: CBC, BMP 06/03/19 07:00 06/03/19 07:00 INR, PTT INR 1.17 (0.83-1.09) H 05/31/19 11:05 - ....Imaging EKG: Image Reviewed Assessment/Plan Assessment/Plan EKG: sinus, nl intervals, no ischemic changes Holter 04/2019 no arrhythmia echo 04/2019 nl LV/RV function, E/A reversal, mild pulm HTN, mild MAC, mild MR, mild to mod TR Carotid ultrasound 04/2019 80-99% L ICA stenosis with extensive atherosclerotic disease bilaterally tele: sinus 88F h/o HTN, HLD, carotid stenosis p/w R hemiparesis, dysarthria, now resolved TIA, carotid stenosis: - evaluated by vascular - no intervention recommended - neuro consulted - d/w [facility], not a candidate for intervention and tPA held for R hemiparesis, dysarthria 06/01 - continue aspirin, statin, plavix per neuro - monitoring on tele - MRI brain with L parietal lobe stroke HTN - BP targets per neuro HLD - cont statin PSVT: -Start low dose B-Lynn, cont Tele
--- NOTE | 2019-06-04 10:12 | PN ---
Progress Note (short form) - Note Progress Note: 88 year old female history of HTN,HLD,Left sided critical stenosis. Jennifer came with right hand leg weakness and speech dysarthria. It seems to be recovered. At home,SHe takes zocor and not taking aspirin. She saw dr blanc in past for possible CEA. On June 01, she become suddenly right sided weakness and aphasia. Her NIH score was 5 and her bp was 140/81 and she recovered after giving IVF. [facility] jac[facility] was called and patient had ct head , which was unchanged. Patient recovered after giving ivf and spoke to [facility] ( stroke team) Dr Howard. After much discussion it was decided she would not be candidate. G On June 01, she went to icu and later sent back to floor. She has mri of brain it showed left parietal lobe stroke and clinically she is much improved. repeat ct head is unremarkable and she is doing much better . 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 - she would be going home on friday Thanking you so much Anshu Sloan MD
[2019-06-04] MEDS: MULTIVITAMINS (DAILY MVI) TABLET (FP) PO SCH (10:42)
[2019-06-04] MEDS: CLOPIDOGREL BISULFATE 75 MG TABLET (FP) PO SCH (10:42)
[2019-06-04] MEDS: metoPROLOL SUCCINATE 25 MG TAB.SR.24H (FP) PO SCH (10:43)
[2019-06-04] MEDS: ASPIRIN 81 MG CHEWABLE TABLETS PO SCH (10:43)
[2019-06-04] MEDS: POLYETHYLENE GLYCOL 3350 119 GM BTL PO SCH (10:47)
--- NOTE | 2019-06-04 11:22 | PN ---
Progress Note (short form) - Note Progress Note: 88 y/o female found sitting in bed, alert and oriented. Dtr present at bedside. No c/o pain or discomfort. Vital Signs Period Temp Pulse Resp BP Sys/Gomez Pulse Ox Last 24 Hr 97.4 F-98.5 F 68-76 16-18 112-149/58-69 97 CBC, BMP 06/03/19 07:00 06/03/19 07:00 HEENT- NL Neck-supple Lungs- CTAB Heart- S1/S2 Abd- soft, nt Ext- No LE edema Active Medications Acetaminophen (Tylenol -) 650 mg PO Q6H PRN PRN Reason: PAIN LEVEL 1-5 Last Admin: 06/02/19 13:21 Dose: 650 mg Aspirin (Asa -) 81 mg PO DAILY [facility] Last Admin: 06/04/19 10:43 Dose: 81 mg Atorvastatin Calcium (Lipitor -) 80 mg PO HS [facility] Last Admin: 06/03/19 21:33 Dose: 80 mg Clopidogrel Bisulfate (Plavix -) 75 mg PO DAILY [facility] Last Admin: 06/04/19 10:42 Dose: 75 mg Sodium Chloride (Normal Saline -) 500 mls @ 500 mls/hr IV ASDIR [facility] Last Admin: 06/03/19 17:20 Dose: Not Given Metoprolol Succinate (Toprol Xl -) 12.5 mg PO DAILY [facility] Last Admin: 06/04/19 10:43 Dose: 12.5 mg Multivitamins/Minerals/Vitamin C (Tab-A-Vit -) 1 tab PO DAILY [facility] Last Admin: 06/04/19 10:42 Dose: 1 tab Polyethylene Glycol (Miralax (For Daily Use) -) 17 gm PO DAILY [facility] Last Admin: 06/04/19 10:47 Dose: Not Given # CVA No further episodes Continue Plavix/ therapy Walker received today Pt/ dtr aware of POC # Left ICA occlusion 100 % occlusion Continue Atorvastatin 80 mg # HTN continue BB Problem List - Problems (1) Fall at home Code(s): W19.XXXA - UNSPECIFIED FALL, INITIAL ENCOUNTER; Y92.009 - UNSP PLACE IN UNSP NON-[facility] (PRIVATE[facility] RESIDENCE PLACE (2) Right-sided muscle weakness Code(s): M62.81 - MUSCLE WEAKNESS (GENERALIZED) (3) Slurred speech Code(s): R47.81 - SLURRED SPEECH (4) Hyperlipemia Code(s): E78.5 - HYPERLIPIDEMIA, UNSPECIFIED (5) Hypertension Code(s): I10 - ESSENTIAL (PRIMARY) HYPERTENSION
[2019-06-04] MEDS: SODIUM CHLORIDE 500 ML IV SCH (18:51)
[2019-06-04] MEDS: ATORVASTATIN CA 80 MG TABLET (FP) PO SCH (21:03)
--- NOTE | 2019-06-05 09:34 | PN ---
Progress Note, Physician Chief Complaint: No CP or SOB TELE: NSR, no further PSVT - Current Medication List Current Medications: Active Medications Acetaminophen (Tylenol -) 650 mg PO Q6H PRN PRN Reason: PAIN LEVEL 1-5 Last Admin: 06/02/19 13:21 Dose: 650 mg Aspirin (Asa -) 81 mg PO DAILY [facility] Last Admin: 06/04/19 10:43 Dose: 81 mg Atorvastatin Calcium (Lipitor -) 80 mg PO HS [facility] Last Admin: 06/04/19 21:03 Dose: 80 mg Clopidogrel Bisulfate (Plavix -) 75 mg PO DAILY [facility] Last Admin: 06/04/19 10:42 Dose: 75 mg Sodium Chloride (Normal Saline -) 500 mls @ 500 mls/hr IV ASDIR [facility] Last Admin: 06/04/19 18:51 Dose: Not Given Metoprolol Succinate (Toprol Xl -) 12.5 mg PO DAILY [facility] Last Admin: 06/04/19 10:43 Dose: 12.5 mg Multivitamins/Minerals/Vitamin C (Tab-A-Vit -) 1 tab PO DAILY [facility] Last Admin: 06/04/19 10:42 Dose: 1 tab Polyethylene Glycol (Miralax (For Daily Use) -) 17 gm PO DAILY [facility] Last Admin: 06/04/19 10:47 Dose: Not Given - Objective Vital Signs: Vital Signs Temperature 98.0 F 06/05/19 06:00 Pulse Rate 71 06/05/19 06:00 Respiratory Rate 16 06/05/19 06:00 Blood Pressure 104/52 L 06/05/19 06:00 O2 Sat by Pulse Oximetry (%) 97 06/04/19 20:36 Constitutional: Yes: No Distress, Calm Cardiovascular: Yes: Regular Rate and Rhythm Respiratory: Yes: CTA Bilaterally Gastrointestinal: Yes: Soft Edema: No Neurological: Yes: Alert, Oriented ...Motor Strength: WNL Labs: CBC, BMP 06/03/19 07:00 06/03/19 07:00 INR, PTT INR 1.17 (0.83-1.09) H 05/31/19 11:05 Assessment/Plan Assessment/Plan EKG: sinus, nl intervals, no ischemic changes Holter 04/2019 no arrhythmia echo 04/2019 nl LV/RV function, E/A reversal, mild pulm HTN, mild MAC, mild MR, mild to mod TR Carotid ultrasound 04/2019 80-99% L ICA stenosis with extensive atherosclerotic disease bilaterally tele: sinus 88F h/o HTN, HLD, carotid stenosis p/w R hemiparesis, dysarthria, now resolved. PSVT, resolved on low dose beta abigail. TIA, carotid stenosis: - evaluated by vascular - no intervention recommended - neuro consulted - d/w [facility], not a candidate for intervention and tPA held for R hemiparesis, dysarthria 06/01 - continue aspirin, statin, plavix per neuro - monitoring on tele - MRI brain with L parietal lobe stroke HTN - BP targets per neuro HLD - cont statin PSVT: -Seemingly resolved w/ addition Toprol 12.5mg on 06/04, no further SVT noted. If remains nl today, d/c tele in AM 06/06
[2019-06-05] MEDS: POLYETHYLENE GLYCOL 3350 119 GM BTL PO SCH (10:12)
[2019-06-05] MEDS: ACETAMINOPHEN 325 MG TABLET (FP) PO PRN (10:13)
[2019-06-05] MEDS: MULTIVITAMINS (DAILY MVI) TABLET (FP) PO SCH (10:14)
[2019-06-05] MEDS: ASPIRIN 81 MG CHEWABLE TABLETS PO SCH (10:14)
[2019-06-05] MEDS: CLOPIDOGREL BISULFATE 75 MG TABLET (FP) PO SCH (10:14)
[2019-06-05] MEDS: metoPROLOL SUCCINATE 25 MG TAB.SR.24H (FP) PO SCH (10:15)
--- NOTE | 2019-06-05 10:37 | PN ---
Progress Note (short form) - Note Progress Note: 88 year old female history of HTN,HLD,Left sided critical stenosis. Jennifer came with right hand leg weakness and speech dysarthria. It seems to be recovered. At home,SHe takes zocor and not taking aspirin. She saw dr blanc in past for possible CEA. On June 01, she become suddenly right sided weakness and aphasia. Her NIH score was 5 and her bp was 140/81 and she recovered after giving IVF. [facility] jacinto was called and patient had ct head , which was unchanged. Patient recovered after giving ivf and spoke to [facility] ( stroke team) Dr Howard. After much discussion it was decided she would not be candidate. G On June 01, she went to icu and later sent back to floor. She has mri of brain it showed left parietal lobe stroke and clinically she is much improved. repeat ct head is unremarkable and she is doing much better . she is feeling better, mild right arm intermittent tremor, but not bother her too much. 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
--- NOTE | 2019-06-05 14:45 | PN ---
Progress Note (short form) - Note Progress Note: awake alert oriente X3 FROM ambulating well daughter at bedside Vital Signs Period Temp Pulse Resp BP Sys/Gomez Pulse Ox Last 24 Hr 97.8 F-98.6 F 72-88 16-18 138-163/52-89 99-100 heart s1/S2 regular lungs clear bilat abd soft non tender ext no edema / no calf tenderness able to move all extremetied / FROM / no sensory deficits / speech clear and comprehension appropriate CBC, BMP 06/03/19 07:00 06/03/19 07:00 CBC, BMP 06/03/19 07:00 06/03/19 07:00 , ct head no acute findings / repeat CT 06/02 neg also CTA of neck showed left ica 100 percent occlusion MRI reviewed -- left parietal lobe stroke Active Medications Acetaminophen (Tylenol -) 650 mg PO Q6H PRN PRN Reason: PAIN LEVEL 1-5 Last Admin: 06/05/19 10:13 Dose: 650 mg Aspirin (Asa -) 81 mg PO DAILY [facility] Last Admin: 06/05/19 10:14 Dose: 81 mg Clopidogrel Bisulfate (Plavix -) 75 mg PO DAILY [facility] Last Admin: 06/05/19 10:14 Dose: 75 mg Sodium Chloride (Normal Saline -) 500 mls @ 500 mls/hr IV ASDIR [facility] Last Admin: 06/04/19 18:51 Dose: Not Given Metoprolol Succinate (Toprol Xl -) 12.5 mg PO DAILY [facility] Last Admin: 06/05/19 10:15 Dose: 12.5 mg Multivitamins/Minerals/Vitamin C (Tab-A-Vit -) 1 tab PO DAILY [facility] Last Admin: 06/05/19 10:14 Dose: 1 tab Polyethylene Glycol (Miralax (For Daily Use) -) 17 gm PO DAILY [facility] Last Admin: 06/05/19 10:12 Dose: Not Given Assessment/Plan 88 year old female history of HTN,HLD, came with right sided hemiparesis and symptoms resolved. # CVA clinically improved yet repeat event day after admission - with transfer to ICU. Neurology on the cruz when event occurred, sx resolved while in ICU. Back on medical [facility] day 2 without further events on Plavix / repeat CTas above MRI results discussed with family medical management and POC discussed # Left ICA occlusion increased dose of statins # HTN continue home meds Problem List - Problems (1) Fall at home Code(s): W19.XXXA - UNSPECIFIED FALL, INITIAL ENCOUNTER; Y92.009 - UNSP PLACE IN UNSP NON-INSTITUT (PRIVATE) RESIDENCE PLACE (2) Right-sided muscle weakness Code(s): M62.81 - MUSCLE WEAKNESS (GENERALIZED) (3) Slurred speech Code(s): R47.81 - SLURRED SPEECH (4) Hyperlipemia Code(s): E78.5 - HYPERLIPIDEMIA, UNSPECIFIED (5) Hypertension Code(s): I10 - ESSENTIAL (PRIMARY) HYPERTENSION
[2019-06-05] MEDS: SODIUM CHLORIDE 500 ML IV SCH (17:19)
[2019-06-05] MEDS: ATORVASTATIN CA 80 MG TABLET (FP) PO SCH (21:14)
--- NOTE | 2019-06-06 09:16 | PN ---
Progress Note (short form) - Note Progress Note: 88 year old female history of HTN,HLD,Left sided critical stenosis. Jennifer came with right hand leg weakness and speech dysarthria. It seems to be recovered. At home,SHe takes zocor and not taking aspirin. She saw dr blanc in past for possible CEA. On June 01, she become suddenly right sided weakness and aphasia. Her NIH score was 5 and her bp was 140/81 and she recovered after giving IVF. [facility] jacinto was called and patient had ct head , which was unchanged. Patient recovered after giving ivf and spoke to [facility] ( stroke team) Dr Howard. After much discussion it was decided she would not be candidate. G On June 01, she went to icu and later sent back to floor. She has mri of brain it showed left parietal lobe stroke and clinically she is much improved. repeat ct head is unremarkable and she is doing much better . she is sitting in bed with daughter at bede , no new comlain. 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 Plan: continue plavix and statin, i will d/c aspirin - she would be going home on friday Thanking you so much Anshu Sloan MD
--- NOTE | 2019-06-06 09:29 | PN ---
Progress Note, Physician Chief Complaint: no new complaints TELE: NSR, PVCS (single), short string of consec APCs. - Current Medication List Current Medications: Active Medications Acetaminophen (Tylenol -) 650 mg PO Q6H PRN PRN Reason: PAIN LEVEL 1-5 Last Admin: 06/05/19 10:13 Dose: 650 mg Atorvastatin Calcium (Lipitor -) 80 mg PO HS [facility] Last Admin: 06/05/19 21:14 Dose: 80 mg Clopidogrel Bisulfate (Plavix -) 75 mg PO DAILY [facility] Last Admin: 06/05/19 10:14 Dose: 75 mg Sodium Chloride (Normal Saline -) 500 mls @ 500 mls/hr IV ASDIR [facility] Last Admin: 06/05/19 17:19 Dose: Not Given Metoprolol Succinate (Toprol Xl -) 12.5 mg PO DAILY [facility] Last Admin: 06/05/19 10:15 Dose: 12.5 mg Multivitamins/Minerals/Vitamin C (Tab-A-Vit -) 1 tab PO DAILY [facility] Last Admin: 06/05/19 10:14 Dose: 1 tab Polyethylene Glycol (Miralax (For Daily Use) -) 17 gm PO DAILY [facility] Last Admin: 06/05/19 10:12 Dose: Not Given - Objective Vital Signs: Vital Signs Temperature 98.3 F 06/06/19 08:55 Pulse Rate 67 06/06/19 08:55 Respiratory Rate 19 06/06/19 08:55 Blood Pressure 139/55 L 06/06/19 08:55 O2 Sat by Pulse Oximetry (%) 97 06/05/19 21:00 Constitutional: Yes: No Distress, Calm Cardiovascular: Yes: Regular Rate and Rhythm Respiratory: Yes: CTA Bilaterally Gastrointestinal: Yes: Soft Edema: No Neurological: Yes: Alert, Oriented ...Motor Strength: WNL Labs: CBC, BMP 06/03/19 07:00 06/03/19 07:00 INR, PTT INR 1.17 (0.83-1.09) H 05/31/19 11:05 - ....Imaging EKG: Image Reviewed Assessment/Plan Assessment/Plan EKG: sinus, nl intervals, no ischemic changes Holter 04/2019 no arrhythmia echo 04/2019 nl LV/RV function, E/A reversal, mild pulm HTN, mild MAC, mild MR, mild to mod TR Carotid ultrasound 04/2019 80-99% L ICA stenosis with extensive atherosclerotic disease bilaterally tele: sinus 88F h/o HTN, HLD, carotid stenosis p/w R hemiparesis, dysarthria, now resolved. PSVT, resolved on low dose beta abigail. TIA, carotid stenosis: - evaluated by vascular - no intervention recommended - neuro consulted - d/w [facility], not a candidate for intervention and tPA held for R hemiparesis, dysarthria 06/01 - continue aspirin, statin, plavix per neuro - monitoring on tele - MRI brain with L parietal lobe stroke HTN - BP targets per neuro HLD - cont statin PSVT: - Resolved w/ addition Toprol 12.5mg on 06/04, no further SVT noted. -Would benefit from extended outpatient rhythm monitoring.
[2019-06-06] MEDS: CLOPIDOGREL BISULFATE 75 MG TABLET (FP) PO SCH (10:20)
[2019-06-06] MEDS: metoPROLOL SUCCINATE 25 MG TAB.SR.24H (FP) PO SCH (10:20)
[2019-06-06] MEDS: MULTIVITAMINS (DAILY MVI) TABLET (FP) PO SCH (10:20)
[2019-06-06] MEDS: POLYETHYLENE GLYCOL 3350 119 GM BTL PO SCH (10:21)
--- NOTE | 2019-06-06 11:29 | PN ---
Progress Note (short form) - Note Progress Note: awake alert oriente X3 FROM ambulating well in rioom witnessed having lunch - good fine motor control daughter at bedside -reports improved strength to right side since yesterday Vital Signs Period Temp Pulse Resp BP Sys/Gomez Pulse Ox Last 24 Hr 97.8 F-98.6 F 72-88 16-18 138-163/52-89 99-100 heart s1/S2 regular lungs clear bilat abd soft non tender ext no edema / no calf tenderness able to move all extremetied / FROM / no sensory deficits / speech clear and comprehension appropriate CBC, BMP 06/03/19 07:00 06/03/19 07:00 , ct head no acute findings / repeat CT 06/02 neg also CTA of neck showed left ica 100 percent occlusion MRI reviewed -- left parietal lobe stroke Active Medications Acetaminophen (Tylenol -) 650 mg PO Q6H PRN PRN Reason: PAIN LEVEL 1-5 Last Admin: 06/05/19 10:13 Dose: 650 mg Atorvastatin Calcium (Lipitor -) 80 mg PO HS [facility] Last Admin: 06/05/19 21:14 Dose: 80 mg Clopidogrel Bisulfate (Plavix -) 75 mg PO DAILY [facility] Last Admin: 06/06/19 10:20 Dose: 75 mg Sodium Chloride (Normal Saline -) 500 mls @ 500 mls/hr IV ASDIR [facility] Last Admin: 06/05/19 17:19 Dose: Not Given Metoprolol Succinate (Toprol Xl -) 12.5 mg PO DAILY [facility] Last Admin: 06/06/19 10:20 Dose: 12.5 mg Multivitamins/Minerals/Vitamin C (Tab-A-Vit -) 1 tab PO DAILY [facility] Last Admin: 06/06/19 10:20 Dose: 1 tab Polyethylene Glycol (Miralax (For Daily Use) -) 17 gm PO DAILY [facility] Last Admin: 06/06/19 10:21 Dose: Not Given Assessment/Plan 88 year old female history of HTN,HLD, came with right sided hemiparesis and symptoms resolved. # CVA clinically improved yet repeat event day after admission - with transfer to ICU. Neurology on the [facility] when event occurred, sx resolved while in ICU. Back on medical [facility] day 2 without further events on Plavix / repeat CT as above MRI results discussed with family medical management and POC discussed patient to be d/c 'd home with VNS services for PT/OT # Left ICA occlusion increased dose of statins # HTN meds adjusted avoid hypotension Problem List - Problems (1) Fall at home Code(s): W19.XXXA - UNSPECIFIED FALL, INITIAL ENCOUNTER; Y92.009 - UNSP PLACE IN UNSP [facility] RESIDENCE [facility] (2) Right-sided muscle weakness Code(s): M62.81 - MUSCLE WEAKNESS (GENERALIZED) (3) Slurred speech Code(s): R47.81 - SLURRED SPEECH (4) Hyperlipemia Code(s): E78.5 - HYPERLIPIDEMIA, UNSPECIFIED (5) Hypertension Code(s): I10 - ESSENTIAL (PRIMARY) HYPERTENSION
[2019-06-06] MEDS: SODIUM CHLORIDE 500 ML IV SCH (19:22)
[2019-06-06] MEDS: ATORVASTATIN CA 80 MG TABLET (FP) PO SCH (21:20)
[2019-06-07 06:18] LABS: BLOOD UREA NITROGEN 13.3 mg/dL (7-18); CREATININE 0.6 mg/dL (0.55-1.3); POTASSIUM 4.3 mmol/L (3.5-5.1)
[2019-06-07 06:39] LABS: BASO % 0.8 % (0-2.0); EOS % 0.7 % (0-4.5); HEMATOCRIT 34.9 % (32.4-45.2); HEMOGLOBIN 11.8 GM/dL (10.7-15.3); LYMPH % 21.3 % (8-40); MCH 30.7 pg (25.7-33.7); MCHC 33.9 g/dl (32.0-36.0); MEAN CELL VOLUME 90.7 fl (80-96); MEAN PLT VOLUME 8.4 fl (7.5-11.1); MONO % 16.5 % (3.8-10.2); NEUT % 60.7 % (42.8-82.8); PLATELET COUNT 408 K/MM3 (134-434); RBC 3.85 M/mm3 (3.60-5.2); RDW 14.2 % (11.6-15.6); WHITE BLOOD COUNT 6.6 K/mm3 (4.0-10.0)
[2019-06-07] MEDS: CLOPIDOGREL BISULFATE 75 MG TABLET (FP) PO SCH (09:02)
[2019-06-07] MEDS: MULTIVITAMINS (DAILY MVI) TABLET (FP) PO SCH (09:02)
[2019-06-07] MEDS: metoPROLOL SUCCINATE 25 MG TAB.SR.24H (FP) PO SCH (09:03)
[2019-06-07] MEDS: POLYETHYLENE GLYCOL 3350 119 GM BTL PO SCH (09:03)
--- NOTE | 2019-06-07 09:20 | PN ---
Progress Note, Physician Chief Complaint: cva History of Present Illness: no cp, sob, palpit, syncope - Current Medication List Current Medications: Active Medications Acetaminophen (Tylenol -) 650 mg PO Q6H PRN PRN Reason: PAIN LEVEL 1-5 Last Admin: 06/05/19 10:13 Dose: 650 mg Atorvastatin Calcium (Lipitor -) 80 mg PO HS [facility] Last Admin: 06/06/19 21:20 Dose: 80 mg Clopidogrel Bisulfate (Plavix -) 75 mg PO DAILY [facility] Last Admin: 06/07/19 09:02 Dose: 75 mg Sodium Chloride (Normal Saline -) 500 mls @ 500 mls/hr IV ASDIR [facility] Last Admin: 06/06/19 19:22 Dose: Not Given Metoprolol Succinate (Toprol Xl -) 12.5 mg PO DAILY [facility] Last Admin: 06/07/19 09:03 Dose: 12.5 mg Multivitamins/Minerals/Vitamin C (Tab-A-Vit -) 1 tab PO DAILY [facility] Last Admin: 06/07/19 09:02 Dose: 1 tab Polyethylene Glycol (Miralax (For Daily Use) -) 17 gm PO DAILY [facility] Last Admin: 06/07/19 09:03 Dose: Not Given - Objective Vital Signs: Vital Signs Temperature 98.2 F 06/07/19 06:00 Pulse Rate 66 06/07/19 06:00 Respiratory Rate 20 06/07/19 06:00 Blood Pressure 118/78 06/07/19 06:00 O2 Sat by Pulse Oximetry (%) 97 06/06/19 21:00 Constitutional: Yes: Well Nourished, No Distress, Calm Cardiovascular: Yes: Regular Rate and Rhythm, S1, S2. No: Gallop, Murmur Respiratory: Yes: Regular, CTA Bilaterally. No: Accessory Muscle Use, Rales, Wheezes Extremities: No: Cold Edema: No Neurological: Yes: Alert. No: Seizure Psychiatric: No: Agitated Labs: CBC, BMP 06/07/19 05:25 06/07/19 05:25 INR, PTT INR 1.17 (0.83-1.09) H 05/31/19 11:05 Assessment/Plan echo 04/2019: nl LV/RV function, mild pulm HTN, mild to mod TR Carotid ultrasound 04/2019: 80-99% L ICA stenosis with extensive atherosclerotic disease bilaterally CTA neck: LICA totally occluded, R side patent tele: sinus 88F h/o HTN, HLD, carotid stenosis p/w R hemiparesis, dysarthria, now resolved. PSVT, resolved on low dose beta abigail. CVA, carotid stenosis: - MRI brain with L parietal lobe stroke - evaluated by vascular - no intervention recommended (LICA is occluded) - neuro consulted - d/w [facility], not a candidate for intervention and tPA held for R hemiparesis, dysarthria 06/01 - continue aspirin, statin, plavix per neuro - monitoring on tele HTN - BP targets per neuro HLD - cont statin PSVT: - Resolved w/ addition Toprol 12.5mg on 06/04, no further SVT noted. -Would benefit from extended outpatient rhythm monitoring.
--- NOTE | 2019-06-07 10:01 | PN ---
Progress Note (short form) - Note Progress Note: 88 year old female history of HTN,HLD,Left sided critical stenosis. Jennifer came with right hand leg weakness and speech dysarthria. It seems to be recovered. At home,SHe takes zocor and not taking aspirin. She saw dr blanc in past for possible CEA. On June 01, she become suddenly right sided weakness and aphasia. Her NIH score was 5 and her bp was 140/81 and she recovered after giving IVF. [facility] jacinto was called and patient had ct head , which was unchanged. Patient recovered after giving ivf and spoke to [facility] ( stroke team) Dr Howard. After much discussion it was decided she would not be candidate. G On June 01, she went to icu and later sent back to floor. She has mri of brain it showed left parietal lobe stroke and clinically she is much improved. repeat ct head is unremarkable and she is doing much better . 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 she is being discharged today Plan: continue plavix and statin, follow up outpatien t - spoke to daughter need to do home bp monitoring. Thanking you so much Anshu Sloan MD
[2019-06-07 10:32] VITALS: BP 134/53; PULSE 67; TEMP 98.9
--- NOTE | 2019-06-07 11:09 | DS ---
Physical Examination Vital Signs: Vital Signs Temperature 98.9 F 06/07/19 10:00 Pulse Rate 67 06/07/19 10:00 Respiratory Rate 20 06/07/19 10:00 Blood Pressure 134/53 L 06/07/19 10:00 O2 Sat by Pulse Oximetry (%) 98 06/07/19 09:00 Findings/Remarks: 88 year old female history of HTN, HLD, Left sided critical ICA stenosis. Patient admitted with right hand leg weakness and speech dysarthria, which resolved hours after being admitted. On June 01, she developed sudden onset right sided weakness and aphasia. Her NIH score was 5 and her bp was 140/81 and she recovered after giving IVF. [facility] jac[facility] was called and patient had ct head , which was unchanged. Patient recovered after giving ivf and spoke to [facility] ( stroke team) Dr Howard. After much discussion it was decided she would not be candidate for intervention. On June 01, she went to icu, where she had significant neurological recovery and later transferred back to medical [facility]. MRI of brain -- left parietal lobe stroke she is clinically improved. 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 # CVA clinically improved yet repeat event day after admission - with transfer to ICU. Neurology on the [facility] when event occurred, sx resolved while in ICU. Back on medical [facility] day 2 without further events on Plavix / repeat CT as above MRI results discussed with family medical management and POC discussed continue plavix and statin, follow up outpatient daughter need to do home bp monitoring. patient to be d/c 'd home with VNS services for PT/OT # Left ICA occlusion increased dose of statins # HTN meds adjusted avoid hypotension Monitor out patient bp Constitutional: Yes: Well Nourished, No Distress, Calm Eyes: Yes: WNL, Conjunctiva Clear, EOM Intact HENT: Yes: Atraumatic, Normocephalic. No: Drooling Neck: Yes: Supple, Trachea Midline Cardiovascular: Yes: Regular Rate and Rhythm Respiratory: Yes: Regular, CTA Bilaterally Gastrointestinal: Yes: Normal Bowel Sounds, Soft ...Rectal Exam: Yes: Deferred Renal/: Yes: WNL Breast(s): Yes: WNL Musculoskeletal: Yes: WNL Extremities: Yes: WNL Edema: No Peripheral Pulses WNL: Yes Integumentary: Yes: WNL Neurological: Yes: Alert, Oriented, Other (as above) ...Motor Strength: WNL Psychiatric: Yes: Alert, Oriented Labs: CBC, BMP 06/07/19 05:25 06/07/19 05:25 Discharge Summary Reason For Visit: CVA Current Active Problems Cerebrovascular accident (CVA) (Acute) Fall at home (Acute) Right-sided muscle weakness (Acute) Slurred speech (Acute) Condition: Stable - Instructions Disposition: HOME - Home Medications Comprehensive Discharge Medication List: Ambulatory Orders toprol 12.5 mg PO q day Multivitamins [Multivit ([facility] Formulary)] 1 tab PO DAILY 08/16/14 lipitor 80 mg daily Ergocalciferol (Vitamin D2) [Vitamin D2] 50,000 unit PO WEEKLY 05/31/19 plavix 75 mg q day
== END 2019-06-07 14:53 | disposition home or self-care (01) | DRG 65 ==
LOC: JER 10:11 → JERBED 11:45 → J4S 16:15 → JICU 06-01 10:43 → J4S 06-01 18:12
PROVIDERS: ADMIT Family Medicine; ATTEND Family Medicine
DX: I63.232 Cerebral infarction due to unspecified occlusion or stenosis of left carotid arteries (principal); I69.351 Hemiplegia and hemiparesis following cerebral infarction affecting right dominant side; I47.1 Supraventricular tachycardia; R29.705 NIHSS score 5; I10 Essential (primary) hypertension; R47.81 Slurred speech; E78.5 Hyperlipidemia, unspecified; I69.820 Aphasia following other cerebrovascular disease; R47.89 Other speech disturbances; M62.81 Muscle weakness (generalized); W18.39XA Other fall on same level, initial encounter; Y93.89 Activity, other specified; Y92.098 Other place in other non-institutional residence as the place of occurrence of the external cause
CPT/HCPCS: 36415; 70450-TC; 70496-TC; 70498-TC; 70551-TC; 80048; 80053; 80061; 81003; 82550; 83721; 83735; 84100; 84443; 84484; 85025; 85610; 86850; 86900; 86901; 93005; 93010; 97116-GP; 97161-GP; 99284-25; J7030

== ENCOUNTER 2019-06-17 14:53 | Inpatient (IN) | payer OTHER ==
[2019-06-17 15:34] VITALS: BMI 21.2
--- NOTE | 2019-06-17 15:48 | PDOC ---
History of Present Illness - General Chief Complaint: CVA/TIA Stated Complaint: SLUREDED SPEAK Time Seen by Provider: 06/17/19 15:09 - History of Present Illness Initial Comments: 06/17/19 16:02 88 year old female with PMH of HTN, HLD, and left sided internal carotid stenosis (100% on CTA) presenting with right facial droop . left sided hand weakness, speech deficit, and right lower extremity weakness worsening today By the time the patient was brought here by ems she only had minor deficits to facial symmetry. Past History - Past Medical History Allergies/Adverse Reactions: Allergies Allergy/AdvReac Type Severity Reaction Status Date / Time No Known Allergies Allergy Verified 06/17/19 15:26 Home Medications: Ambulatory Orders Multivitamins [Multivit ([facility] Formulary)] 1 tab PO DAILY 08/16/14 Ergocalciferol (Vitamin D2) [Vitamin D2] 50,000 unit PO WEEKLY 05/31/19 Acetaminophen [Tylenol .Regular Strength -] 650 mg PO Q6H PRN tablet 06/07/19 Atorvastatin Ca [Lipitor] 80 mg PO HS 30 Days #30 tablet 06/07/19 Clopidogrel Bisulfate [Plavix -] 75 mg PO DAILY 30 Days #30 tablet 06/07/19 Metoprolol Succinate [Toprol XL -] 12.5 mg PO DAILY 30 Days #30 tab.sr.24h 06/07 Polyethylene Glycol 3350 [Miralax 119 gm Btl -] 17 gm PO DAILY 30 Days #1 bottle 06/07/19 Anemia: No Asthma: No Cancer: No CVA: Yes (05/2019) COPD: No Dementia: Yes Diabetes: No GI Disorders: No Disorders: No HTN: Yes Hypercholesterolemia: Yes Liver Disease: No Seizures: No Thyroid Disease: No - Immunization History Immunization Up to Date: Yes - Suicide/Smoking/Psychosocial Hx Smoking History: Never smoked Have you smoked in the past 12 months: No Information on smoking cessation initiated: No Hx Alcohol Use: No Drug/Substance Use Hx: No Substance Use Type: None Hx Substance Use Treatment: No Review of Systems - Review of Systems Able to Perform ROS?: No (dementia) *Physical Exam - Vital Signs Last Vital Signs Temp Pulse Resp BP Pulse Ox 98.3 F 83 18 153/61 100 06/17/19 15:26 06/17/19 15:26 06/17/19 15:26 06/17/19 15:26 06/17/19 15:34 - Physical Exam General Appearance: Yes: Nourished, Appropriately Dressed. No: Apparent Distress HEENT: positive: EOMI, PABLO, Normal ENT Inspection Respiratory/Chest: positive: Lungs Clear, Normal Breath Sounds. negative: Chest Tender, Respiratory Distress Cardiovascular: positive: Regular Rhythm, Regular Rate, S1, S2 Gastrointestinal/Abdominal: positive: Normal Bowel Sounds, Flat, Soft. negative : Tender Musculoskeletal: positive: Normal Inspection. negative: CVA Tenderness Extremity: positive: Normal Capillary Refill, Normal Inspection, Normal Range of Motion Integumentary: positive: Normal Color, Dry, Warm Neurologic: positive: Confused, Disoriented (at baseline.) NIH Stroke Scale - Last Known Well Date/Time & Onset Date Last Known Well: 06/17/19 Time Last Known Well: 14:00 - Initial Evaluation Level of consciousness: Alert Ask patient the month and their age: Answers both correctly Ask patient to open & close eyes; make fist and let go: Obeys both correctly Best gaze (horizontal eye movement): Normal Visual field testing: No visual field loss Facial paresis (Show teeth/raise eyebrows/close eyes tight): Minor paralysis ( flattened nasolabial fold, asymmetry on smiling) Motor Function: Left Arm: Normal Motor Function: Right Arm: Normal (extends arm 90 (or 45) degrees for 10 seconds without drift Motor Function: Left Leg: Normal (extends leg 30 degrees for 5 seconds without drift) Motor Function: Right Leg: Drift Limb Ataxia: No ataxia Sensory(Use pinprick test arms,legs,trunk,face/side to side): Normal Best language (Describe picture, name items, read sentences): No Aphasia Dysarthria (read several words): Normal articulation Extinction and Inattention: No abnormality - Total Score NIH Stroke Scale Score: 2 tPA Exclusion Checklist 0-3hr - Time Elapsed Date last known well: 06/17/19 Time last known well: 14:00 Elaspsed time: Day(s) and 2 Hour(s) and 56 Minutes - Thrombolytic Therapy Candidate Is the patient eligible for Thrombolytic Therapy?: Yes - Exclusion Criteria 0-3hr SBP greater than 185 or DBP greater than 110mmHg despite tx: No Recent IC/spinal surgery,head trauma or stroke w/in last 3mo: Yes Hx of previous IC hemorrhage, IC neoplasm, AVM or aneurysm: No Active internal bleeding: No Blding diathesis(low plt ct, inc PTT,INR>1.7 or use of NOAC): No Symptoms suggest subarachnoid hemorrhage: No CT demonstrates multilobar infarct(>1/3 cerebral hemiphere): No Arterial puncture at noncompressible site in previous 7 days: No Blood glucose concentration less than 50mg/dL (2.7mmol/L): No - Relative Exclusion Criteria 0-3h Life expectancy <1yr/severe co-morbid illness/[employer] on admit: No : No Patient/family refused: No Rapid improvement: Yes Stroke severity too mild: Yes Recent acute ME (w/in previous 3 months): No Seizure at onset with postictal residual neuro impairments: No Major surgery or serious trauma w/in previous 14 days: No Recent GI or hemorrhage (w/in previous 21 days): No - Ineligibility reason(s) Reasons No tPA given: See reason(s) noted above Critical Care Time/MDM Note - Medical Decision Making Note: 06/17/19 16:56 Code Anthony activated. Patient almost at baseline now. This is liekly repeat TIA, CT head negative for acute processes. Tried to rerach Dr. Sloan who will be back in the office on Friday. Instead spoke to Dr Montalvo who will see the patient tomorrow. Asked for MRI. Admitted the patient Dr. Duque to [facility]. *DC/Admit/Observation/Transfer Diagnosis at time of Disposition: TIA (transient ischemic attack) - Discharge Dispostion Decision to Admit order: Yes - Referrals Referrals: Angela Galarza MD [Primary Care Provider] - - Patient Instructions - Post Discharge Activity
--- NOTE | 2019-06-17 16:05 | PDOC ---
Documentation entered by Torrey Butler SCRIBE, acting as scribe for Isabel Umaña MD. Isabel Umaña MD: This documentation has been prepared by the Luke bridges Daniel, SCRIBE, under my direction and personally reviewed by me in its entirety. I confirm that the documentation accurately reflects all work, treatment, procedures, and medical decision making performed by me. Attending Attestation - Resident Resident Name: Juan Hutchins - ED Attending Attestation I have performed the following: I have examined & evaluated the patient, The case was reviewed & discussed with the resident, I agree w/resident's findings & plan - HPI HPI: 06/17/19 15:44 The patient is an 88 year old female with a past medical history of HTN, HLD, and left sided carotid stenosis here today for evaluation of right sided facial droop and difficulty speaking. As per the daughter, the patient began developed a right facial droop and difficulty speaking around 2:30 PM. Patient was hospitalized here on 05/31/19 for similar symptoms (dysarthria, RUE and RLE weakness), deemed to pursue medical management for 100% lt ICA stenosis, currently only on Plavix.. Allergies: NKA PCP: Angela Galarza 06/18/19 13:20 - Physicial Exam PE: 06/17/19 15:57 NAD, awake and alert. EOMI, PERRL, nl conjunctiva, anicteric; neck supple. lungs clear, RRR, no murmur, abdomen soft nontender. Back nontender. ROGER x4, no focal neuro deficits. No peripheral edema. normal color for ethnicity, WWP. Demented. No carotid bruit, faint loss of rt nasolabial fold, otherwise remainder of cranial nerves wnl. Strength prox and distally 5/5 throughout. Sensation grossly intact to light touch. ROGER x4. No cerebellar signs, no dysmetria, no dysarthria, bilateral finger to nose equal and symmetric. speech clear. 06/17/19 16:02 06/18/19 13:20 - Medical Decision Making 06/17/19 16:03 See HPI for details. Prior notes reviewed, including admissions, discharges and consultations. Vital signs reviewed, wnl. Vital Signs Temp Pulse Resp BP Pulse Ox 98.3 F 83 18 153/61 100 06/17/19 15:26 06/17/19 15:26 06/17/19 15:26 06/17/19 15:26 06/17/19 15:34 DDX CVA, ICH, mass, TIA, carotid stenosis. laboratory results and imaging reviewed, basic labs and lytes wnl, notable for_ . Cardiac panel_ EKG normal sinus rhythm at 77 bpm, no interval abnormalities, narrow QRS, ST and T wave segments and morphology normal. Nonspecific T wave flattening in III only, similar Prior head CT had revealed acute nonhemorrhagic infarctions in the left parietal lobe there is volume loss consistent with her history of dementia. In comparison CT head today negative for acute hemorrhage, old CVA is seen similar to her prior CT. ED course -BP downtrending. 150/80s. HR 76 on monitor not tpa candidate, as resolving sx, also prior history of stroke, no longer slurring speech or having difficulty speaking. no pronator drift. no sig facial droop. sensation gross intact. also age >[address] Duque, for CVA/TIA workup, medical management, neuro eval, admit to Dr Duque. neuro cs Dr Montalvo tele monitor. MRI, vascular input, and optimization for TIA/CVA. 06/17/19 16:06 06/17/19 16:35 06/18/19 13:21 Heart Score/ECG Review #1 ECG reviewed & interpreted by me at: 15:05 General ECG Interpretation: Sinus Rhythm, Normal Rate, Normal Intervals Compared to previous ECG there are: No significant change 06/17/19 16:37 EKG normal sinus rhythm at 77 bpm, no interval abnormalities, narrow QRS, ST and T wave segments and morphology normal. Nonspecific T wave flattening in III only, similar
[2019-06-17 16:34] LABS: ALBUMIN 3.4 g/dl (3.4-5.0); BILIRUBIN,TOTAL 0.3 mg/dL (0.2-1); BLOOD UREA NITROGEN 13.2 mg/dL (7-18); CALCIUM 9.7 mg/dL (8.5-10.1); CREATININE 0.7 mg/dL (0.55-1.3); POTASSIUM 5.2 mmol/L (3.5-5.1); TOT PROT 8.1 g/dl (6.4-8.2)
[2019-06-17 16:35] LABS: INR 1.09 (0.83-1.09); PROTHROMBIN TIME (PATIENT) 12.9 SEC (9.7-13.0)
[2019-06-17 16:42] LABS: BASO % 0.7 % (0-2.0); EOS % 0.8 % (0-4.5); HEMATOCRIT 36.8 % (32.4-45.2); HEMOGLOBIN 12.3 GM/dL (10.7-15.3); LYMPH % 29.9 % (8-40); MCH 30.2 pg (25.7-33.7); MCHC 33.4 g/dl (32.0-36.0); MEAN CELL VOLUME 90.4 fl (80-96); MEAN PLT VOLUME 8.8 fl (7.5-11.1); MONO % 19.5 % (3.8-10.2); NEUT % 49.1 % (42.8-82.8); PLATELET COUNT 346 K/MM3 (134-434); RBC 4.07 M/mm3 (3.60-5.2); RDW 14.1 % (11.6-15.6); WHITE BLOOD COUNT 5.9 K/mm3 (4.0-10.0)
[2019-06-17 16:48] LABS: CHOLESTEROL 114 mg/dL (50-200); HDL CHOLESTEROL 38 mg/dL (40-60); TRIGLYCERIDES 57 mg/dL (0-150)
[2019-06-17] MEDS ORDERED: ACETAMINOPHEN 325 MG TABLET (FP) PO PRN (22:02)
--- NOTE | 2019-06-17 22:05 | HP ---
Admitting History and Physical - Admission History of Present Illness: 88 year old female history of HTN, HLD, Left sided critical ICA stenosis. Patient admitted on 05/31/2019 with right hand leg weakness and speech dysarthria , which resolved hours after being admitted. On 06/01/2019, while on medical cruz , she developed sudden onset right sided weakness and aphasia. Her NIH score was 5 and her bp was 140/81 - she recovered after giving IVF. Repeat CT of head at that time was unchanged - call placed to [facility] (stroke team ) Dr Howard. After much discussion it was decided she would not be candidate for intervention. Today 06/17/10 patient is brought to ED by daughter after developing right facial droop and difficulty speaking this began about 2:30pm and persisted - she called office and was instructed to go to ED if symptoms did not resolve. 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 Cardiovascular: Yes: HTN, Hyperlipdemia Reproductive: Yes: Postmenopausal - Smoking History Smoking history: Never smoked Have you smoked in the past 12 months: No - Alcohol/Substance Use Hx Alcohol Use: No History of Substance Use: reports: None - Social History Usual Living Arrangement: Yes: With Child ADL: Family Assistance History of Recent Travel: No Home Medications - Allergies Allergies/Adverse Reactions: Allergies Allergy/AdvReac Type Severity Reaction Status Date / Time No Known Allergies Allergy Verified 06/17/19 15:26 - Home Medications Home Medications: Ambulatory Orders Multivitamins [Multivit ([facility] Formulary)] 1 tab PO DAILY 08/16/14 Ergocalciferol (Vitamin D2) [Vitamin D2] 50,000 unit PO WEEKLY 05/31/19 Acetaminophen [Tylenol .Regular Strength -] 650 mg PO Q6H PRN tablet 06/07/19 Atorvastatin Ca [Lipitor] 80 mg PO HS 30 Days #30 tablet 06/07/19 Clopidogrel Bisulfate [Plavix -] 75 mg PO DAILY 30 Days #30 tablet 06/07/19 Metoprolol Succinate [Toprol XL -] 12.5 mg PO DAILY 30 Days #30 tab.sr.24h 06/07 Polyethylene Glycol 3350 [Miralax 119 gm Btl -] 17 gm PO DAILY 30 Days #1 bottle 06/07/19 Review of Systems - Review of Systems Constitutional: reports: No Symptoms Eyes: reports: No Symptoms HENT: reports: Other (facial asymmetry) Neck: reports: No Symptoms Cardiovascular: reports: No Symptoms Respiratory: reports: No Symptoms Gastrointestinal: reports: No Symptoms Genitourinary: reports: No Symptoms Breasts: reports: No Symptoms Reported Musculoskeletal: reports: No Symptoms Integumentary: reports: No Symptoms Neurological: reports: Change in Speech, Pre-Existing Deficit, Unsteady Gait Endocrine: reports: No Symptoms Hematology/Lymphatic: reports: No Symptoms Psychiatric: reports: No Symptoms Physical Examination Vital Signs: Vital Signs Temperature 98.3 F 06/17/19 15:26 Pulse Rate 83 06/17/19 15:26 Respiratory Rate 18 06/17/19 15:26 Blood Pressure 153/61 06/17/19 15:26 O2 Sat by Pulse Oximetry (%) 100 06/17/19 21:00 Constitutional: Yes: Well Nourished, No Distress, Calm, Thin Eyes: Yes: Conjunctiva Clear, EOM Intact HENT: Yes: Atraumatic, Normocephalic Neck: Yes: Supple, Trachea Midline Cardiovascular: Yes: Regular Rate and Rhythm Respiratory: Yes: Regular, CTA Bilaterally Gastrointestinal: Yes: Normal Bowel Sounds, Soft ...Rectal Exam: Yes: WNL Renal/: Yes: Anuria Breast(s): Yes: WNL Musculoskeletal: Yes: Muscle Weakness Extremities: Yes: WNL Edema: No Peripheral Pulses WNL: Yes Integumentary: Yes: WNL Neurological: Yes: Pre-Existing Deficit, Unsteady Gait Psychiatric: Yes: Alert, Oriented Labs: CBC, BMP 06/17/19 15:18 06/17/19 15:18 Problem List - Problems (1) Slurred speech Code(s): R47.81 - SLURRED SPEECH (2) TIA (transient ischemic attack) Code(s): G45.9 - TRANSIENT CEREBRAL ISCHEMIC ATTACK, UNSPECIFIED (3) Cerebrovascular accident (CVA) Code(s): I63.9 - CEREBRAL INFARCTION, UNSPECIFIED Qualifiers: CVA mechanism: occlusion Precerebral and cerebral artery: carotid artery Laterality of affected vessel: left Qualified Code(s): I63.232 - Cerebral infarction due to unspecified occlusion or stenosis of left carotid arteries (4) Hyperlipemia Code(s): E78.5 - HYPERLIPIDEMIA, UNSPECIFIED (5) Hypertension Code(s): I10 - ESSENTIAL (PRIMARY) HYPERTENSION (6) Occlusion of left internal carotid artery Code(s): I65.22 - OCCLUSION AND STENOSIS OF LEFT CAROTID ARTERY
[2019-06-17] MEDS: ATORVASTATIN CA 80 MG TABLET (FP) PO SCH (23:44)
[2019-06-18 07:41] LABS: BASO % 2.3 % (0-2.0); EOS % 1.1 % (0-4.5); HEMATOCRIT 34.7 % (32.4-45.2); HEMOGLOBIN 11.7 GM/dL (10.7-15.3); LYMPH % 21.5 % (8-40); MCH 30.5 pg (25.7-33.7); MCHC 33.7 g/dl (32.0-36.0); MEAN CELL VOLUME 90.3 fl (80-96); MEAN PLT VOLUME 8.4 fl (7.5-11.1); MONO % 20.9 % (3.8-10.2); NEUT % 54.2 % (42.8-82.8); PLATELET COUNT 315 K/MM3 (134-434); RBC 3.85 M/mm3 (3.60-5.2); RDW 14.1 % (11.6-15.6)
[2019-06-18 08:04] LABS: BLOOD UREA NITROGEN 9.2 mg/dL (7-18); CALCIUM 9.4 mg/dL (8.5-10.1); CREATININE 0.6 mg/dL (0.55-1.3); POTASSIUM 4.3 mmol/L (3.5-5.1)
[2019-06-18] MEDS: CLOPIDOGREL BISULFATE 75 MG TABLET (FP) PO SCH (09:08)
[2019-06-18] MEDS: MULTIVITAMINS (DAILY MVI) TABLET (FP) PO SCH (09:08)
[2019-06-18] MEDS: metoPROLOL SUCCINATE 25 MG TAB.SR.24H (FP) PO SCH (09:08)
[2019-06-18] MEDS: POLYETHYLENE GLYCOL 3350 119 GM BTL PO SCH (09:09)
--- NOTE | 2019-06-18 09:23 | CONSULT ---
Consult - text type - Consultation Consultation Note: Neurology CC: Weakness History of Present Illness: 88 year old female history of HTN, HLD, Left sided critical ICA stenosis. Patient admitted on 05/31/2019 with right hand leg weakness and speech dysarthria , which resolved hours after being admitted. On 06/01/2019, while on medical cruz , she developed sudden onset right sided weakness and aphasia. Her NIH score was 5 and her bp was 140/81 - she recovered after giving IVF. Repeat CT of head at that time was unchanged - call placed to [facility] (stroke team ) Dr Howard. After much discussion it was decided she would not be candidate for intervention. Today 06/17/10 patient is brought to ED by daughter after developing right facial droop and difficulty speaking this began about 2:30pm and persisted - she called office and was instructed to go to ED if symptoms did not resolve. From prior admission, MRI of brain -- left parietal lobe stroke, CT of head X2 unchanged, CTA of neck with left ICA 100% occlusion. Patient seen this morning and discussed with daughter who is at bedside. Reportedly previously patient was on both aspirin and Plavix and currently only on Plavix 75 mg. We'll order MRI brain to further evaluate but will put patient back on combination aspirin and Plavix. Patient is on statin 80 mg. 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 Cardiovascular: Yes: HTN, Hyperlipdemia Reproductive: Yes: Postmenopausal - Smoking History Smoking history: Never smoked Have you smoked in the past 12 months: No - Alcohol/Substance Use Hx Alcohol Use: No History of Substance Use: reports: None - Social History Usual Living Arrangement: Yes: With Child ADL: Family Assistance History of Recent Travel: No FAMILY: HTN Home Medications - Allergies Allergies/Adverse Reactions: Allergies Allergy/AdvReac Type Severity Reaction Status Date / Time No Known Allergies Allergy Verified 06/17/19 15:26 - Home Medications Home Medications: Ambulatory Orders Multivitamins [Multivit ([facility] Formulary)] 1 tab PO DAILY 08/16/14 Ergocalciferol (Vitamin D2) [Vitamin D2] 50,000 unit PO WEEKLY 05/31/19 Acetaminophen [Tylenol .Regular Strength -] 650 mg PO Q6H PRN tablet 06/07/19 Atorvastatin Ca [Lipitor] 80 mg PO HS 30 Days #30 tablet 06/07/19 Clopidogrel Bisulfate [Plavix -] 75 mg PO DAILY 30 Days #30 tablet 06/07/19 Metoprolol Succinate [Toprol XL -] 12.5 mg PO DAILY 30 Days #30 tab.sr.24h 06/07 Polyethylene Glycol 3350 [Miralax 119 gm Btl -] 17 gm PO DAILY 30 Days #1 bottle 06/07/19 Review of Systems - Review of Systems Constitutional: reports: No Symptoms Eyes: reports: No Symptoms HENT: reports: Other (facial asymmetry) Neck: reports: No Symptoms Cardiovascular: reports: No Symptoms Respiratory: reports: No Symptoms Gastrointestinal: reports: No Symptoms Genitourinary: reports: No Symptoms Breasts: reports: No Symptoms Reported Musculoskeletal: reports: No Symptoms Integumentary: reports: No Symptoms Neurological: reports: Change in Speech, Pre-Existing Deficit, Unsteady Gait Endocrine: reports: No Symptoms Hematology/Lymphatic: reports: No Symptoms Psychiatric: reports: No Symptoms Physical Examination Vital Signs Period Temp Pulse Resp BP Sys/Gomez Pulse Ox Last 24 Hr 97.8 F-98.4 F 63-83 18-20 138-160/57-71 100-100 Constitutional: Yes: Well Nourished, No Distress, Calm, Thin Eyes: Yes: Conjunctiva Clear, EOM Intact HENT: Yes: Atraumatic, Normocephalic Neck: Yes: Supple, Trachea Midline Cardiovascular: Yes: Regular Rate and Rhythm Respiratory: Yes: Regular, CTA Bilaterally Gastrointestinal: Yes: Normal Bowel Sounds, Soft ...Rectal Exam: Yes: WNL Renal/: Yes: Anuria Breast(s): Yes: WNL Musculoskeletal: Yes: Muscle Weakness Extremities: Yes: WNL Edema: No Peripheral Pulses WNL: Yes Integumentary: Yes: WNL Neurological: R facial droop, not participating confrontation testing, moves extremities grossly, Left greater than R, gait deferred Labs: CBCD WBC 5.0 K/mm3 (4.0-10.0) 06/18/19 07:00 RBC 3.85 M/mm3 (3.60-5.2) 06/18/19 07:00 Hgb 11.7 GM/dL (10.7-15.3) 06/18/19 07:00 Hct 34.7 % (32.4-45.2) 06/18/19 07:00 MCV 90.3 fl (80-96) 06/18/19 07:00 MCHC 33.7 g/dl (32.0-36.0) 06/18/19 07:00 RDW 14.1 % (11.6-15.6) 06/18/19 07:00 Plt Count 315 K/MM3 (134-434) 06/18/19 07:00 MPV 8.4 fl (7.5-11.1) 06/18/19 07:00 CMP Sodium 141 mmol/L (136-145) 06/18/19 07:00 Potassium 4.3 mmol/L (3.5-5.1) 06/18/19 07:00 Chloride 104 mmol/L (98-107) 06/18/19 07:00 Carbon Dioxide 30 mmol/L (21-32) 06/18/19 07:00 Anion Gap 7 MMOL/L (8-16) L 06/18/19 07:00 BUN 9.2 mg/dL (7-18) 06/18/19 07:00 Creatinine 0.6 mg/dL (0.55-1.3) 06/18/19 07:00 Random Glucose 93 mg/dL (74-106) 06/18/19 07:00 Calcium 9.4 mg/dL (8.5-10.1) 06/18/19 07:00 Total Bilirubin 0.3 mg/dL (0.2-1) 06/17/19 15:18 AST 20 U/L (15-37) 06/17/19 15:18 ALT 29 U/L (13-61) 06/17/19 15:18 Alkaline Phosphatase 146 U/L (45-117) H 06/17/19 15:18 Total Protein 8.1 g/dl (6.4-8.2) 06/17/19 15:18 Albumin 3.4 g/dl (3.4-5.0) 06/17/19 15:18 CARDIAC ENZYMES Creatine Kinase 71 U/L (26-192) 06/17/19 15:18 Troponin I < 0.02 ng/ml (0.00-0.05) 06/17/19 15:18 Plan: 88 year old female history of HTN, HLD, Left sided critical ICA stenosis. Patient admitted on 05/31/2019 with right hand leg weakness and speech dysarthria , which resolved hours after being admitted. On 06/01/2019, while on medical cruz , she developed sudden onset right sided weakness and aphasia. Her NIH score was 5 and her bp was 140/81 - she recovered after giving IVF. Repeat CT of head at that time was unchanged - call placed to [facility] (stroke team ) Dr Howard. After much discussion it was decided she would not be candidate for intervention. Today 06/17/10 patient is brought to ED by daughter after developing right facial droop and difficulty speaking this began about 2:30pm and persisted - she called office and was instructed to go to ED if symptoms did not resolve. From prior admission, MRI of brain -- left parietal lobe stroke, CT of head X2 unchanged, CTA of neck with left ICA 100% occlusion. According to conversation with ER, prior evaluation by vascular surgeon deemed that patient would be medical management and no surgical intervention Patient seen this morning and discussed with daughter who is at bedside. Reportedly previously patient was on both aspirin and Plavix and currently only on Plavix 75 mg. We'll order MRI brain to further evaluate but will put patient back on combination aspirin and Plavix which she was on previously, no bleeding issues with stool medication per daughter. Patient is on statin 80 mg. follow-up MRI brain to evaluate for new infarct. Monitor blood pressure, maintain < 160/90, LDL 67, remains on statin. Physical therapy as tolerated, may benefit from short-term rehabilitation.
--- NOTE | 2019-06-18 10:48 | PN ---
Progress Note (short form) - Note Progress Note: 88 y/o female found lying in bed. Dtr present at bedside. Dtr stated pt able to eat breakfast. No difficulty speaking. Pt denies pain and discomfort. Vital Signs Period Temp Pulse Resp BP Sys/Gomez Pulse Ox Last 24 Hr 97.8 F-98.4 F 63-83 18-20 138-160/57-71 100-100 CBC, BMP 06/18/19 07:00 06/18/19 07:00 HEENT- NL Neck-Trachea midline Lungs- CTAB Heart- S1/S2 Abd- soft, nt Ext- No LE edema Full ROM B/L UE and LE Active Medications Acetaminophen (Tylenol -) 650 mg PO Q6H PRN PRN Reason: PAIN LEVEL 1-5 Aspirin (Ecotrin -) 81 mg PO DAILY [facility] Atorvastatin Calcium (Lipitor -) 80 mg PO HS [facility] Last Admin: 06/17/19 23:44 Dose: 80 mg Clopidogrel Bisulfate (Plavix -) 75 mg PO DAILY [facility] Last Admin: 06/18/19 09:08 Dose: 75 mg Metoprolol Succinate (Toprol Xl -) 12.5 mg PO DAILY [facility] Last Admin: 06/18/19 09:08 Dose: 12.5 mg Multivitamins/Minerals/Vitamin C (Tab-A-Vit -) 1 tab PO DAILY [facility] Last Admin: 06/18/19 09:08 Dose: 1 tab Polyethylene Glycol (Miralax (For Daily Use) -) 17 gm PO DAILY [facility] Last Admin: 06/18/19 09:09 Dose: 17 grams #TIA No acute changes on head CT MRI pending Neuro consult appreciated ASA/plavix #HLD Cont statin #HTN Cont BB Monitor BP Problem List - Problems (1) Slurred speech Code(s): R47.81 - SLURRED SPEECH (2) TIA (transient ischemic attack) Code(s): G45.9 - TRANSIENT CEREBRAL ISCHEMIC ATTACK, UNSPECIFIED (3) Cerebrovascular accident (CVA) Code(s): I63.9 - CEREBRAL INFARCTION, UNSPECIFIED Qualifiers: CVA mechanism: occlusion Precerebral and cerebral artery: carotid artery Laterality of affected vessel: left Qualified Code(s): I63.232 - Cerebral infarction due to unspecified occlusion or stenosis of left carotid arteries (4) Hyperlipemia Code(s): E78.5 - HYPERLIPIDEMIA, UNSPECIFIED (5) Hypertension Code(s): I10 - ESSENTIAL (PRIMARY) HYPERTENSION (6) Occlusion of left internal carotid artery Code(s): I65.22 - OCCLUSION AND STENOSIS OF LEFT CAROTID ARTERY
[2019-06-18 10:57] LABS: ANISOCYTOSIS 1+; MACROCYTOSIS 0; PLATELET ESTIMATE NORMAL; TARGET CELLS 1+; TEAR DROP CELLS 1+
[2019-06-18] MEDS: ASPIRIN COATED 81 MG TABLET.EC PO SCH (11:46)
--- NOTE | 2019-06-18 11:46 | EKG ---
Test Reason : Blood Pressure : / mmHG Vent. Rate : 077 BPM Atrial Rate : 077 BPM P-R Int : 124 ms QRS Dur : 078 ms QT Int : 400 ms P-R-T Axes : 076 037 037 degrees QTc Int : 452 ms NORMAL SINUS RHYTHM NORMAL ECG WHEN COMPARED WITH ECG OF 31-MAY-2019 11:07, NO SIGNIFICANT CHANGE WAS FOUND Confirmed by LUZ MARIA FUENTES MD ([id number]) on 06/18/2019 11:46:01 AM Referred By: Confirmed By:LUZ MARIA FUENTES MD
[2019-06-18] MEDS: ATORVASTATIN CA 80 MG TABLET (FP) PO SCH (21:23)
[2019-06-19 07:04] LABS: BLOOD UREA NITROGEN 9.8 mg/dL (7-18); CALCIUM 8.8 mg/dL (8.5-10.1); CREATININE 0.5 mg/dL (0.55-1.3); POTASSIUM 4.2 mmol/L (3.5-5.1)
[2019-06-19 07:28] LABS: BASO % 0.6 % (0-2.0); EOS % 1.1 % (0-4.5); HEMATOCRIT 32.4 % (32.4-45.2); HEMOGLOBIN 11.1 GM/dL (10.7-15.3); LYMPH % 19.9 % (8-40); MCH 30.5 pg (25.7-33.7); MCHC 34.2 g/dl (32.0-36.0); MEAN CELL VOLUME 89.1 fl (80-96); MEAN PLT VOLUME 8.7 fl (7.5-11.1); MONO % 17.9 % (3.8-10.2); NEUT % 60.5 % (42.8-82.8); PLATELET COUNT 280 K/MM3 (134-434); RBC 3.64 M/mm3 (3.60-5.2); RDW 13.7 % (11.6-15.6)
[2019-06-19 08:40] VITALS: BP 124/59; PULSE 69; TEMP 98
[2019-06-19] MEDS: MULTIVITAMINS (DAILY MVI) TABLET (FP) PO SCH (09:07)
[2019-06-19] MEDS: CLOPIDOGREL BISULFATE 75 MG TABLET (FP) PO SCH (09:07)
[2019-06-19] MEDS: metoPROLOL SUCCINATE 25 MG TAB.SR.24H (FP) PO SCH (09:07)
[2019-06-19] MEDS: POLYETHYLENE GLYCOL 3350 119 GM BTL PO SCH (09:08)
[2019-06-19] MEDS: ASPIRIN COATED 81 MG TABLET.EC PO SCH (09:08)
--- NOTE | 2019-06-19 10:25 | DS ---
Physical Examination Vital Signs: Vital Signs Temperature 98 F 06/19/19 08:37 Pulse Rate 69 06/19/19 08:37 Respiratory Rate 18 06/19/19 08:37 Blood Pressure 124/59 L 06/19/19 08:37 O2 Sat by Pulse Oximetry (%) 100 06/18/19 22:00 Findings/Remarks: 88 year old female history of HTN, HLD, Left sided critical ICA stenosis. Patient admitted on 05/31/2019 with right hand leg weakness and speech dysarthria , which resolved hours after being admitted. On 06/01/2019, while on medical cruz , she developed sudden onset right sided weakness and aphasia. Her NIH score was 5 and her bp was 140/81 - she recovered after giving IVF. Repeat CT of head at that time was unchanged - call placed to [facility] (stroke team ) Dr Howard. After much discussion it was decided she would not be candidate for intervention. On 06/17/10 patient is brought to ED by daughter after developing right facial droop and difficulty speaking this began about 2:30pm and persisted - she called office and was instructed to go to ED if symptoms did not resolve. Once at ED sx had resolved and at time of visit speech was back to baseline. Repeat MRI with preliminary report unchanged from previous. patient seen by Dr Montalvo for neuro follow up. from previous admission MRI of brain -- left parietal lobe stroke /06/18/19-- preliminary states CVA stable and findings unchanged ( official reading from MRI 06/18/19 pending) CT of head X2 unchanged CTA of neck with left ICA 100% occlusion Constitutional: Yes: Well Nourished, No Distress Eyes: Yes: Conjunctiva Clear, EOM Intact HENT: Yes: Atraumatic, Normocephalic Neck: Yes: Supple, Trachea Midline Cardiovascular: Yes: Regular Rate and Rhythm Respiratory: Yes: Regular, CTA Bilaterally Gastrointestinal: Yes: Normal Bowel Sounds, Soft ...Rectal Exam: Yes: Deferred Renal/: Yes: WNL Breast(s): Yes: WNL Musculoskeletal: Yes: WNL Extremities: Yes: WNL Edema: No Peripheral Pulses WNL: Yes Neurological: Yes: Pre-Existing Deficit, Unsteady Gait ...Motor Strength: WNL Psychiatric: Yes: Alert, Oriented Labs: CBC, BMP 06/19/19 06:10 06/19/19 06:10 Discharge Summary Reason For Visit: OCLUSION LEFT INTERNAL CAROTID ARTERY; TIA Current Active Problems TIA (transient ischemic attack) (Acute) Condition: Stable - Instructions Disposition: HOME - Home Medications Comprehensive Discharge Medication List: Ambulatory Orders Multivitamins [Multivit ([facility] Formulary)] 1 tab PO DAILY 08/16/14 Ergocalciferol (Vitamin D2) [Vitamin D2] 50,000 unit PO WEEKLY 05/31/19 Acetaminophen [Tylenol .Regular Strength -] 650 mg PO Q6H PRN tablet 06/07/19 Atorvastatin Ca [Lipitor] 80 mg PO HS 30 Days #30 tablet 06/07/19 Clopidogrel Bisulfate [Plavix -] 75 mg PO DAILY 30 Days #30 tablet 06/07/19 Metoprolol Succinate [Toprol XL -] 12.5 mg PO DAILY 30 Days #30 tab.sr.24h 06/07 Polyethylene Glycol 3350 [Miralax 119 gm Btl -] 17 gm PO DAILY 30 Days #1 bottle 06/07/19 added ASA 81 mg q day POC discussed with daughter - addition of ASA and neuro follow up Patient will follow up at office Friday
--- NOTE | 2019-06-19 10:32 | PN ---
Progress Note (short form) - Note Progress Note: Neurology CC: Weakness History of Present Illness: 88 year old female history of HTN, HLD, Left sided critical ICA stenosis. Patient admitted on 05/31/2019 with right hand leg weakness and speech dysarthria , which resolved hours after being admitted. On 06/01/2019, while on medical cruz , she developed sudden onset right sided weakness and aphasia. Her NIH score was 5 and her bp was 140/81 - she recovered after giving IVF. Repeat CT of head at that time was unchanged - call placed to [facility] (stroke team ) Dr Howard. After much discussion it was decided she would not be candidate for intervention. , 06/17/10 patient is brought to ED by daughter after developing right facial droop and difficulty speaking this began about 2:30pm on day of admission and persisted - she called office and was instructed to go to ED if symptoms did not resolve. From prior admission, MRI of brain -- left parietal lobe stroke, CT of head X2 unchanged, CTA of neck with left ICA 100% occlusion. Patient seen this morning and discussed with daughter who is at bedside. Reportedly previously patient was on both aspirin and Plavix and currently only on Plavix 75 mg. MRI brain completed, multiple punctate L parietal infarcts, acute, noted. Patient back on combination aspirin and Plavix. Patient is on statin 80 mg. Discussed with daughter at bedside in detail, Edalmis. Verbalized understanding. Active Medications Acetaminophen (Tylenol -) 650 mg PO Q6H PRN PRN Reason: PAIN LEVEL 1-5 Aspirin (Ecotrin -) 81 mg PO DAILY [facility] Last Admin: 06/19/19 09:08 Dose: 81 mg Atorvastatin Calcium (Lipitor -) 80 mg PO HS [facility] Last Admin: 06/18/19 21:23 Dose: 80 mg Clopidogrel Bisulfate (Plavix -) 75 mg PO DAILY [facility] Last Admin: 06/19/19 09:07 Dose: 75 mg Metoprolol Succinate (Toprol Xl -) 12.5 mg PO DAILY [facility] Last Admin: 06/19/19 09:07 Dose: 12.5 mg Multivitamins/Minerals/Vitamin C (Tab-A-Vit -) 1 tab PO DAILY [facility] Last Admin: 06/19/19 09:07 Dose: 1 tab Polyethylene Glycol (Miralax (For Daily Use) -) 17 gm PO DAILY [facility] Last Admin: 06/19/19 09:08 Dose: 17 grams Physical Examination Vital Signs Temp 98 F 06/19/19 08:37 Pulse 69 06/19/19 08:37 Resp 18 06/19/19 09:00 BP 124/59 L 06/19/19 08:37 Pulse Ox 97 06/19/19 09:00 Constitutional: Yes: Well Nourished, No Distress, Calm, Thin Eyes: Yes: Conjunctiva Clear, EOM Intact HENT: Yes: Atraumatic, Normocephalic Neck: Yes: Supple, Trachea Midline Cardiovascular: Yes: Regular Rate and Rhythm Respiratory: Yes: Regular, CTA Bilaterally Gastrointestinal: Yes: Normal Bowel Sounds, Soft ...Rectal Exam: Yes: WNL Renal/: Yes: Anuria Breast(s): Yes: WNL Musculoskeletal: Yes: Muscle Weakness Extremities: Yes: WNL Edema: No Peripheral Pulses WNL: Yes Integumentary: Yes: WNL Neurological: R facial droop, not participating confrontation testing, moves extremities grossly, Left greater than R, gait deferred Labs: CBCD WBC 6.0 K/mm3 (4.0-10.0) 06/19/19 06:10 RBC 3.64 M/mm3 (3.60-5.2) 06/19/19 06:10 Hgb 11.1 GM/dL (10.7-15.3) 06/19/19 06:10 Hct 32.4 % (32.4-45.2) 06/19/19 06:10 MCV 89.1 fl (80-96) 06/19/19 06:10 MCHC 34.2 g/dl (32.0-36.0) 06/19/19 06:10 RDW 13.7 % (11.6-15.6) 06/19/19 06:10 Plt Count 280 K/MM3 (134-434) 06/19/19 06:10 MPV 8.7 fl (7.5-11.1) 06/19/19 06:10 CMP Sodium 138 mmol/L (136-145) 06/19/19 06:10 Potassium 4.2 mmol/L (3.5-5.1) 06/19/19 06:10 Chloride 104 mmol/L (98-107) 06/19/19 06:10 Carbon Dioxide 29 mmol/L (21-32) 06/19/19 06:10 Anion Gap 5 MMOL/L (8-16) L 06/19/19 06:10 BUN 9.8 mg/dL (7-18) 06/19/19 06:10 Creatinine 0.5 mg/dL (0.55-1.3) L 06/19/19 06:10 Random Glucose 96 mg/dL (74-106) 06/19/19 06:10 Calcium 8.8 mg/dL (8.5-10.1) 06/19/19 06:10 Total Bilirubin 0.3 mg/dL (0.2-1) 06/17/19 15:18 AST 20 U/L (15-37) 06/17/19 15:18 ALT 29 U/L (13-61) 06/17/19 15:18 Alkaline Phosphatase 146 U/L (45-117) H 06/17/19 15:18 Total Protein 8.1 g/dl (6.4-8.2) 06/17/19 15:18 Albumin 3.4 g/dl (3.4-5.0) 06/17/19 15:18 CARDIAC ENZYMES Creatine Kinase 71 U/L (26-192) 06/17/19 15:18 Troponin I < 0.02 ng/ml (0.00-0.05) 06/17/19 15:18 Plan: 88 year old female history of HTN, HLD, Left sided critical ICA stenosis. Patient admitted on 05/31/2019 with right hand leg weakness and speech dysarthria , which resolved hours after being admitted. On 06/01/2019, while on medical cruz , she developed sudden onset right sided weakness and aphasia. Her NIH score was 5 and her bp was 140/81 - she recovered after giving IVF. Repeat CT of head at that time was unchanged - call placed to [facility] (stroke team ) Dr Howard. After much discussion it was decided she would not be candidate for intervention. 06/17/10 patient is brought to ED by daughter after developing right facial droop and difficulty speaking this began about 2:30pm and persisted - she called office and was instructed to go to ED if symptoms did not resolve. From prior admission, MRI of brain -- left parietal lobe stroke, CT of head X2 unchanged, CTA of neck with left ICA 100% occlusion. According to conversation with ER, prior evaluation by vascular surgeon deemed that patient would be medical management and no surgical intervention Patient seen this morning and discussed with daughter who is at bedside. Reportedly previously patient was on both aspirin and Plavix and currently only on Plavix 75 mg. MRI brain completed, report pending, patient back on combination aspirin and Plavix. no bleeding issues with stool medication per daughter. Patient is on statin 80 mg. MRI brain completed, multiple punctate L parietal infarcts, acute, noted. Patient back on combination aspirin and Plavix. Patient is on statin 80 mg. Discussed with daughter at bedside in detail, Edalmis. Verbalized understanding. Monitor blood pressure, maintain < 140/80, LDL 67, remains on statin. Follow up vascular specialist regarding ICA stenosis. Physical therapy as tolerated.
== END 2019-06-19 11:58 | disposition home health service (06) | DRG 65 ==
LOC: JER 14:53 → JERBED 16:49 → J4W 20:15 → OBSVTOIN 21:59
PROVIDERS: ADMIT Family Medicine; ATTEND Family Medicine
DX: I63.232 Cerebral infarction due to unspecified occlusion or stenosis of left carotid arteries (principal); G81.90 Hemiplegia, unspecified affecting unspecified side; R29.703 NIHSS score 3; I10 Essential (primary) hypertension; E78.5 Hyperlipidemia, unspecified; R26.81 Unsteadiness on feet; R47.81 Slurred speech; R29.810 Facial weakness
CPT/HCPCS: 36415; 70450-TC; 70551-TC; 71045-TC-FY; 80048; 80053; 82465; 82550; 83718; 83721; 84478; 84484; 85025; 85610; 93005; 93010; 97116-GP; 97161-GP; 99283-25; G0378; G0463-25